=== PATIENT | male | born 1965 | race Caucasian/White ===

== ENCOUNTER 2016-09-23 09:07 | Emergency (ER) | payer BC, OTHER ==
[2016-09-23] MEDS ORDERED: KETOROLAC 30 MG/ML VIAL (J1885) As Ordered ONE (09:59)
[2016-09-23 10:18] LABS: BASO # 0.1 K/mm3 (0.0-0.2); BASO % 0.8 % (0.0-1.0); EOS # 0.3 K/mm3 (0.0-0.50); EOS % 3.6 % (0.0-3.0); LARGE UNSTAINED CELL # 0.1 K/mm3 (0.0-0.4); LARGE UNSTAINED CELL % 1.6 % (0.0-4.0); LYMPH % 22.1 % (24.0-44.0); MEAN CORPUSCULAR HEMOGLOBIN 28.9 pg (27.0-33.0); MEAN CORPUSCULAR VOLUME 84.9 fl (80.0-96.0); MONO # 0.6 K/mm3 (0.0-0.8); MONO % 6.2 % (0.0-5.0); NEUTROPHILS # 5.9 K/mm3 (1.8-7.7); NEUTROPHILS % 65.7 % (36.0-66.0); PLATELET COUNT, AUTOMATED 180 k/mm3 (150-450); RED CELL DISTRIBUTION WIDTH 12.8 % (11.5-14.5); WHITE BLOOD COUNT 8.9 K/mm3 (4.0-10.0)
[2016-09-23 10:37] LABS: ANION GAP 5 MEQ/L (8-16); BLOOD UREA NITROGEN 17 MG/DL (7-18); CALCIUM LEVEL 8.5 MG/DL (8.5-10.1); CARBON DIOXIDE LEVEL 31 MEQ/L (21-32); CHLORIDE LEVEL 107 MEQ/L (98-107); CREATININE FOR GFR 0.88 MG/DL (0.70-1.30); GLOMERULAR FILTRATION RATE > 60.0 (>60); GLUCOSE, FASTING 90 MG/DL (70-105); POTASSIUM SERUM 4.2 MEQ/L (3.5-5.1); SODIUM LEVEL 143 MEQ/L (136-145)
--- NOTE | 2016-09-23 11:27 | REP ---
CT study of the abdomen and pelvis without IV or oral contrast: Renal stone protocol. History: Left renal colic. Comparison CT study is from September 02, 2014. 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 The lung bases are clear. The liver and the spleen are normal in size and homogeneous in texture. No adrenal lesion is seen on either side. The gallbladder and the pancreas show no abnormality. There is stranding and subtle increased density throughout the small bowel mesentery including the paraduodenal small bowel mesenteric fat. Scattered normal-sized lymph nodes are seen. These findings are unchanged when compared with the September 02, 2014 study and consistent with mesenteric panniculitis. There is scattered left colon diverticulosis, most pronounced in the sigmoid segment without CT evidence of diverticulitis. Seminal vesicles, prostate and urinary bladder are unremarkable. Normal appendix is seen. There is mild to moderate left-sided hydronephrosis and hydroureter due to a distal ureteral calculus in the left ureter several centimeters above the ureterovesical junction. This calculus measures 6 mm in greatest diameter. No other ureteral calculus is seen. There are multiple intrarenal calculi bilaterally. There are five or six intrarenal calculi in the left kidney and three on the right. The largest of these is a 7 mm calculus in the left kidney. No retroperitoneal mass or adenopathy is seen. Normal caliber aorta is noted. Urinary bladder is unremarkable. Impression: 1. Moderate left-sided hydronephrosis and hydroureter due to a 6 mm obstructing distal ureteral calculus on the left located several centimeters above the ureterovesical junction. 2. Bilateral intrarenal nephrolithiasis. 3. Left colonic diverticulosis. 4. Small bowel mesenteric panniculitis pattern persists. Signed by Adal Rivera MD 09/23/2016 02:33 P
--- NOTE | 2016-09-23 12:10 | EDDOCDS ---
Nurse's Notes [facility] Name: Ephraim Reyes Age: 50 yrs Sex: Male : 1965 Arrival Date: 09/23/2016 Time: 09:07 Bed I5 / M5 Private MD: Diagnosis: Hydronephrosis with renal and ureteral calculous obstruction-left distal ureter, 6mm stone Presentation: 09/23 09:26 Presenting complaint: Patient states: "I'm having a kidney stone." Pt reports hx of ead kidney stones. Pt reports onset of left flank pain yesterday morning. Acute neurological deficits are not present. Mechanism of Injury: No Mechanism of Injury. Adult Sepsis Screening: The patient does not have new or worsening altered mentation. Patient's respiratory rate is less than 22. Systolic blood pressure is greater than 100. Patient has a qSOFA score of 0- Negative Sepsis Screen. Suicide/Homicide risk assessment- the patient denies having any suicidal and/or homicidal ideations and does not present with any other emotional, behavioral or mental health complaints. 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 Transition of care: patient was not received from another setting of care. 09:26 Acuity: JAMMIE Level 3 ead 09:26 Method Of Arrival: Walkin/Carried/Asstd ead Triage Assessment: 09:28 General: Appears in no apparent distress, uncomfortable, Behavior is appropriate for ead age, cooperative. Pain: Location: anterior aspect of left lateral abdomen and posterior aspect of left lateral abdomen Pain currently is 7 out of 10 on a pain scale. At worst was 10 out of 10 on a pain scale. HIV screening NA for this visit Offered previously. Neurological: No deficits noted. Respiratory: Airway is patent Respiratory effort is even, unlabored. Derm: Skin is pink, warm & dry. Musculoskeletal: Reports pain in anterior aspect of left lateral abdomen and posterior aspect of left lateral abdomen. 09:28 GI: Reports lower abdominal pain, upper abdominal pain, nausea. ead Historical: - Allergies: PENICILLINS (Rash); - Home Meds: 1. none - PMHx: Renal Calculi; - PSHx: kidney stone removal; - Social history: Smoking status: Patient states was never smoker of tobacco. No barriers to communication noted, The patient speaks fluent Armenian, Speaks appropriately for age. - : The pt / caregiver states he / she is not on anticoagulants. Home medication list is obtained from the patient. - Exposure Risk Screening:: None identified. Screenin:07 Screening information is obtained from the patient. Fall risk: No risks identified. jjr Assistance ADL's: requires no assistance with activities of daily living. Abuse/DV Screen: The patient / caregiver reports he/she is: not in a situation that causes fear, pain or injury. Nutritional screening: No deficits noted. Advance Directives: There is no active DNR order. home support is adequate. Assessment: 10:05 General: Appears uncomfortable, well nourished, well groomed, Behavior is appropriate jjr for age. Pain: Location: left low back Pain radiates to left lower quadrant and groin Pain began 1 day ago Is continuous Also complains of nausea. Neurological: No deficits noted. Respiratory: No deficits noted. Derm: No deficits noted. 11:08 General: Appears in no apparent distress, reports pain decreased from arrival, denies jjr needs at this time. Vital Signs: 09:25 BP 144 / 101; Pulse 74; Resp 18; Temp 96.8(O); Pulse Ox 97% on R/A; Weight 90.72 kg ead (R); Height 5 ft. 8 in. (172.72 cm) (R); 10:24 Pain 5/10; jjr 12:03 BP 136 / 99; Pulse 65; Resp 18; Temp 98.9; Pulse Ox 98% ; jlf 12:09 Pain 4/10; jjr 09:25 Body Mass Index 30.41 (90.72 kg, 172.72 cm) [facility] Vitals: 09:25 Log In Time: September 23, 2016 at 09:07. [facility] ED Course: 09:09 Patient visited by Arielle Sevilla. az 09:09 Patient moved to Waiting az 09:23 Patient moved to Pre RCE ead 09:27 Triage Initiated ead 09:48 Romel Rodriguez PA-C is PHCP. ar2 09:48 Barbra Shaw MD is Attending Physician. ar2 09:48 Patient visited by Romel Rodriguez PA-C. ar2 09:48 Patient moved to Triage 3 ead 09:57 Kiya Valenzuela RN is Primary Nurse. jjr 09:57 Patient moved to I5 / M5 jjr 10:06 The patient / caregiver is instructed regarding the plan of care and ED course. jjr 10:06 Inserted saline lock: 20 gauge in right antecubital area and blood collected. Labs jjr drawn. (by ED staff). Sent per order to lab. 10:07 Patient visited by Kiya Valenzuela RN. jjr 10:08 Urine Culture Sent. jjr 10:08 UA Sent. jjr 10:08 MED Profile Sent. jjr 10:08 CBC with Diff Sent. jjr 10:29 Patient name changed from Ephraim\\S\\Raphael\\S\\Eric\\S\\ to Ephraim\\S\\Johnopher\\S\\Eric. EDMS 10:37 Patient visited by Anita Francis PCA. jlf 10:58 [facility] Payment Agreement was scanned into [employer] and attached to record. az 11:08 Patient visited by Kiya Valenzuela RN. jjr 11:59 Jhon Moulton is Referral Physician. ar2 12:00 CT ABD & PELVIS: No Contrast Returned. EDMS 12:03 Patient visited by Anita Francis PCA. jlf 12:03 Patient visited by Anita Francis PCA. jlf 12:09 Discontinued lock intact, bleeding controlled, pressure dressing applied, No jjr redness/swelling at site. No procedures done that require assistance. Administered Medications: 10:07 Drug: ketorolac 30 mg [ketorolac 30 mg/mL (1 mL) injection solution (1 mL)] Route: IVP; jjr Site: right antecubital; 10:24 Follow up: Pain 5/10 Adult; Response: Pain is decreased jjr 10:10 Drug: NS 0.9% 1000 ml Route: IV; Rate: bolus; Site: right antecubital; [facility] 11:07 Follow up: IV Status: Completed infusion; IV Intake: 1000ml jjr Intake: 11:07 IV: 1000.00ml; Total: 1000.00ml. jjr Order Results: Lab Order: CBC with Diff; SPEC'M 09/23/16 10:03 Test: WHITE BLOOD COUNT; Value: 8.9; Range: 4.0-10.0; Units: K/mm3; Status: F Test: RED BLOOD COUNT; Value: 5.26; Range: 4.30-6.10; Units: M/mm3; Status: F Test: HEMOGLOBIN; Value: 15.2; Range: 14.0-18.0; Units: g/dl; Status: F Test: HEMATOCRIT; Value: 44.7; Range: 42.0-52.0; Units: %; Status: F Test: MEAN CORPUSCULAR VOLUME; Value: 84.9; Range: 80.0-96.0; Units: fl; Status: F Test: MEAN CORPUSCULAR HEMOGLOBIN; Value: 28.9; Range: 27.0-33.0; Units: pg; Status: F Test: MEAN CORPUSCULAR HGB CONC; Value: 34.0; Range: 32.0-36.5; Units: g/dl; Status: F Test: RED CELL DISTRIBUTION WIDTH; Value: 12.8; Range: 11.5-14.5; Units: %; Status: F Test: PLATELET COUNT, AUTOMATED; Value: 180; Range: 150-450; Units: k/mm3; Status: F Test: NEUTROPHILS %; Value: 65.7; Range: 36.0-66.0; Units: %; Status: F Test: LYMPH %; Value: 22.1; Range: 24.0-44.0; Abnormal: Below low normal; Units: %; Status: F Test: MONO %; Value: 6.2; Range: 0.0-5.0; Abnormal: Above high normal; Units: %; Status: F Test: EOS %; Value: 3.6; Range: 0.0-3.0; Abnormal: Above high normal; Units: %; Status: F Test: BASO %; Value: 0.8; Range: 0.0-1.0; Units: %; Status: F Test: LARGE UNSTAINED CELL %; Value: 1.6; Range: 0.0-4.0; Units: %; Status: F Test: NEUTROPHILS #; Value: 5.9; Range: 1.8-7.7; Units: K/mm3; Status: F Test: LYMPH #; Value: 2.0; Range: 1.5-4.5; Units: K/mm3; Status: F Test: MONO #; Value: 0.6; Range: 0.0-0.8; Units: K/mm3; Status: F Test: EOS #; Value: 0.3; Range: 0.0-0.50; Units: K/mm3; Status: F Test: BASO #; Value: 0.1; Range: 0.0-0.2; Units: K/mm3; Status: F Test: LARGE UNSTAINED CELL #; Value: 0.1; Range: 0.0-0.4; Units: K/mm3; Status: F Lab Order: MED Profile; SPEC'M 09/23/16 10:03 Test: GLUCOSE, FASTING; Value: 90; Range: 70-105; Units: MG/DL; Status: F Test: BLOOD UREA NITROGEN; Value: 17; Range: 7-18; Units: MG/DL; Status: F Test: CREATININE FOR GFR; Value: 0.88; Range: 0.70-1.30; Units: MG/DL; Status: F Test: GLOMERULAR FILTRATION RATE; Value: > 60.0; Range: >60; Status: F Test: SODIUM LEVEL; Value: 143; Range: 136-145; Units: MEQ/L; Status: F Test: POTASSIUM SERUM; Value: 4.2; Range: 3.5-5.1; Units: MEQ/L; Status: F Test: CHLORIDE LEVEL; Value: 107; Range: 98-107; Units: MEQ/L; Status: F Test: CARBON DIOXIDE LEVEL; Value: 31; Range: 21-32; Units: MEQ/L; Status: F Test: ANION GAP; Value: 5; Range: 8-16; Abnormal: Below low normal; Units: MEQ/L; Status: F Test: CALCIUM LEVEL; Value: 8.5; Range: 8.5-10.1; Units: MG/DL; Status: F Test Note: ; Units are mL/min/1.73 m2 Chronic Kidney Disease Staging per NKF: Stage I & II GFR >=60 Normal to Mildly Decreased Stage III GFR 30-59 Moderately Decreased Stage IV GFR 15-29 Severely Decreased Stage V GFR <15 Very Little GFR Left ESRD GFR <15 on STEEL RU[employer]IE [employer]ER Lab Order: UA; SPEC'09/23/16 09:56 Test: APPEARANCE, URINE; Value: HAZY; Range: CLEAR; Status: F Test: COLOR, URINE; Value: YELLOW; Range: YELLOW; Status: F Test: PH,URINE; Value: 5.0; Range: 5.0-9.0; Units: UNITS; Status: F Test: SPECIFIC GRAVITY URINE AUTO; Value: 1.015; Range: 1.002-1.035; Status: F Test: PROTEIN, URINE AUTO; Value: NEGATIVE; Range: NEGATIVE; Units: mg/dL; Status: F Test: GLUCOSE, URINE (UA) AUTO; Value: NEGATIVE; Range: NEGATIVE; Units: mg/dL; Status: F Test: KETONE, URINE AUTO; Value: NEGATIVE; Range: NEGATIVE; Units: mg/dL; Status: F Test: UROBILINOGEN, URINE AUTO; Value: 0.2; Range: 0.0-2.0; Units: mg/dL; Status: F Test: BILIRUBIN, URINE AUTO; Value: NEGATIVE; Range: NEGATIVE; Status: F Test: NITRITE, URINE AUTO; Value: NEGATIVE; Range: NEGATIVE; Status: F Test: LEUKOCYTE ESTERASE, URINE AUTO; Value: NEGATIVE; Range: NEGATIVE; Status: F Test: BLOOD, URINE BLOOD; Value: 3+; Range: NEGATIVE; Abnormal: Above high normal; Status: F Test: WBC, URINE AUTO; Value: 3; Range: 0-3; Units: /HPF; Status: F Test: RBC, URINE AUTO; Value: TNTC; Range: 0-3; Abnormal: Above high normal; Units: /HPF; Status: F Test: BACTERIA, URINE AUTO; Value: 1+; Range: NEGATIVE; Abnormal: Above high normal; Status: F Test: SQUAMOUS EPITHELIAL CELL UR AU; Value: 0; Range: 0-6; Units: /HPF; Status: F Test: MUCUS, URINE; Value: SMALL; Range: NEGATIVE; Status: F Test: SPERM, URINE AUTO; Value: SMALL; Range: NONE; Abnormal: Above high normal; Status: F Test: HYALINE CAST, URINE AUTO; Value: 0; Range: 0-1; Units: /LPF; Status: F Radiology Order: CT ABD & PELVIS: No Contrast Test: CT ABD & PELVIS: No Contrast REASON FOR EXAMINATION: left renal colic; CT study of the abdomen and pelvis without IV or oral contrast: Renal stone; protocol.; ; History: Left renal colic. 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 The lung bases are clear. The liver and the spleen are normal in size; and homogeneous in texture. No adrenal lesion is seen on either side. The; gallbladder and the pancreas show no abnormality. There is stranding and subtle; increased density throughout the small bowel mesentery including the paraduodenal; small bowel mesenteric fat. Scattered normal-sized lymph nodes are seen. These; findings are unchanged when compared with the September 02, 2014 study and; consistent with mesenteric panniculitis. There is scattered left colon; diverticulosis, most pronounced in the sigmoid segment without CT evidence of; diverticulitis. Seminal vesicles, prostate and urinary bladder are unremarkable.; Normal appendix is seen.; ; There is mild to moderate left-sided hydronephrosis and hydroureter due to a; distal ureteral calculus in the left ureter several centimeters above the; ureterovesical junction. This calculus measures 6 mm in greatest diameter. No; other ureteral calculus is seen. There are multiple intrarenal calculi; bilaterally. There are five or six intrarenal calculi in the left kidney and; three on the right. The largest of these is a 7 mm calculus in the left kidney.; No retroperitoneal mass or adenopathy is seen. Normal caliber aorta is noted.; Urinary bladder is unremarkable.; ; Impression:; 1. Moderate left-sided hydronephrosis and hydroureter due to a 6 mm obstructing; distal ureteral calculus on the left located several centimeters above the; ureterovesical junction.; 2. Bilateral intrarenal nephrolithiasis.; 3. Left colonic diverticulosis.; 4. Small bowel mesenteric panniculitis pattern persists.; ; ; ; ; Unreviewed; Outcome: 12:01 Discharge ordered by Provider. ar2 12:09 Discharge Assessment: patient administered narcotics - no. The following High Risk jjr Discharge criteria are identified: None. Discharged to home ambulatory, with significant other. Condition: stable. Discharge instructions given to patient, Instructed on discharge instructions, follow up and referral plans. medication usage, Demonstrated understanding of instructions, medications, Prescriptions given X 4. CT Study completed. Property sent home with patient. 12:10 Patient left the ED. jjr Signatures: Dispatcher [employer] Pérez Michaud,RN RN Kiya Galindo, RN RN Romel Hebert, PA-[place] PA-C Anita Godwin, Heidy Lcuas,RN RN donnie Sevilla, Arielle berrios EWELINAD
--- NOTE | 2016-09-23 12:10 | EDDOCDS ---
Physician Documentation [facility] Name: Ephraim Reyes Age: 50 yrs Sex: Male : 1965 Arrival Date: 09/23/2016 Time: 09:07 Bed I5 / M5 Private MD: Disposition: 09/23/16 12:01 Discharged to Home/Self Care. Impression: Hydronephrosis with renal and ureteral calculous obstruction - left distal ureter, 6mm stone. - Condition is Stable. - Discharge Instructions: Kidney Stones. - Prescriptions for Ibuprofen 800 mg Oral Tablet - take 1 tablet by ORAL route every 8 hours As needed take with food; 30 tablet. Percocet 5- 325 mg Oral Tablet - take 1 tablet by ORAL route every 6 hours As needed MDD: 4 tabs; 16 tablet. Flomax 0.4 mg Oral Capsule, Sust. Release 24 hr - take 1 capsule by ORAL route once daily 1/2 hour following the same meal each day; 30 capsule. ZOFRAN ODT 4 mg - dissolve 1 tablet by ORAL route 4 times per day As needed do not chew, do not swallow whole; 10 tablet. - Medication Reconciliation, Local Pharmacy Hours form. - Follow up: Jhon Moulton; When: Call to arrange an appointment; Reason: Recheck today's complaints. Follow up: Emergency Department; When: As needed; Reason: Worsening of conditions. - Problem is new. - Symptoms have improved. Historical: - Allergies: PENICILLINS (Rash); - Home Meds: 1. none - PMHx: Renal Calculi; - PSHx: kidney stone removal; - Social history: Smoking status: Patient states was never smoker of tobacco. No barriers to communication noted, The patient speaks fluent Swiss, Speaks appropriately for age. - : The pt / caregiver states he / she is not on anticoagulants. Home medication list is obtained from the patient. - Exposure Risk Screening:: None identified. Vital Signs: 09/23 09:25 BP 144 / 101; Pulse 74; Resp 18; Temp 96.8(O); Pulse Ox 97% on R/A; Weight 90.72 kg / ead 200 lbs (R); Height 5 ft. 8 in. (172.72 cm) (R); 10:24 Pain 5/10; jjr 12:03 BP 136 / 99; Pulse 65; Resp 18; Temp 98.9; Pulse Ox 98% ; jlf 12:09 Pain 4/10; jjr 09:25 Body Mass Index 30.41 (90.72 kg, 172.72 cm) ead MDM: 09:52 IV Saline Lock ordered. ar2 09:52 NS 0.9% 1000 ml IV at bolus once ordered. ar2 09:52 ketorolac 30 mg IVP once ordered. ar2 09:52 Undress patient appropriately for examination ordered. ar2 09:53 CT ABD & PELVIS: No Contrast Ordered. EDMS 09:53 NOTHING BY MOUTH+DIET ordered. EDMS 09:54 CBC with Diff Ordered. EDMS 09:54 MED Profile Ordered. EDMS 09:54 UA Ordered. EDMS 09:54 Urine Culture Ordered. EDMS 10:19 Financial registration complete. az 10:47 CBC with Diff Reviewed. ar2 10:47 MED Profile Reviewed. ar2 10:47 UA Reviewed. ar2 10:58 [facility] Payment Agreement was scanned into [facility] and attached to record. az 11:58 Dispense Urine Strainer ordered. ar2 Administered Medications: 10:07 Drug: ketorolac 30 mg [ketorolac 30 mg/mL (1 mL) injection solution (1 mL)] Route: IVP; jjr Site: right antecubital; 10:24 Follow up: Pain 5/10 Adult; Response: Pain is decreased jjr 10:10 Drug: NS 0.9% 1000 ml Route: IV; Rate: bolus; Site: right antecubital; jmk 11:07 Follow up: IV Status: Completed infusion; IV Intake: 1000ml jjr Signatures: Dispatcher [employer] Kiya Barrios, RN RN jjRomel Alaniz, SHARRI HARRELL ar2 Heidy Loja RN RN ead Zeigler, Abigail az Knapp, Jean RN jmk The chart was reviewed and I authenticate all verbal orders and agree with the evaluation and treatment provided.Attachments: 10:58 [facility] Payment Agreement az MTDD
--- NOTE | 2016-09-25 13:10 | EDDOCDS ---
Physician Documentation [facility] Name: Ephraim Reyes Age: 50 yrs Sex: Male : 1965 Arrival Date: 09/23/2016 Time: 09:07 Bed I5 / M5 Private MD: Disposition: 09/23/16 12:01 Discharged to Home/Self Care. Impression: Hydronephrosis with renal and ureteral calculous obstruction - left distal ureter, 6mm stone. - Condition is Stable. - Discharge Instructions: Kidney Stones. - Prescriptions for Ibuprofen 800 mg Oral Tablet - take 1 tablet by ORAL route every 8 hours As needed take with food; 30 tablet. Percocet 5- 325 mg Oral Tablet - take 1 tablet by ORAL route every 6 hours As needed MDD: 4 tabs; 16 tablet. Flomax 0.4 mg Oral Capsule, Sust. Release 24 hr - take 1 capsule by ORAL route once daily 1/2 hour following the same meal each day; 30 capsule. ZOFRAN ODT 4 mg - dissolve 1 tablet by ORAL route 4 times per day As needed do not chew, do not swallow whole; 10 tablet. - Medication Reconciliation, Local Pharmacy Hours form. - Follow up: Jhon Moulton; When: Call to arrange an appointment; Reason: Recheck today's complaints. Follow up: Emergency Department; When: As needed; Reason: Worsening of conditions. - Problem is new. - Symptoms have improved. Historical: - Allergies: PENICILLINS (Rash); - Home Meds: 1. none - PMHx: Renal Calculi; - PSHx: kidney stone removal; - Social history: Smoking status: Patient states was never smoker of tobacco. No barriers to communication noted, The patient speaks fluent Marshallese, Speaks appropriately for age. - : The pt / caregiver states he / she is not on anticoagulants. Home medication list is obtained from the patient. - Exposure Risk Screening:: None identified. Vital Signs: 09/23 09:25 BP 144 / 101; Pulse 74; Resp 18; Temp 96.8(O); Pulse Ox 97% on R/A; Weight 90.72 kg / ead 200 lbs (R); Height 5 ft. 8 in. (172.72 cm) (R); 10:24 Pain 5/10; jjr 12:03 BP 136 / 99; Pulse 65; Resp 18; Temp 98.9; Pulse Ox 98% ; jlf 12:09 Pain 4/10; jjr 09:25 Body Mass Index 30.41 (90.72 kg, 172.72 cm) ead MDM: 09:52 IV Saline Lock ordered. ar2 09:52 NS 0.9% 1000 ml IV at bolus once ordered. ar2 09:52 ketorolac 30 mg IVP once ordered. ar2 09:52 Undress patient appropriately for examination ordered. ar2 09:53 CT ABD & PELVIS: No Contrast Ordered. EDMS 09:53 NOTHING BY MOUTH+DIET ordered. EDMS 09:54 CBC with Diff Ordered. EDMS 09:54 MED Profile Ordered. EDMS 09:54 UA Ordered. EDMS 09:54 Urine Culture Ordered. EDMS 10:19 Financial registration complete. az 10:47 CBC with Diff Reviewed. ar2 10:47 MED Profile Reviewed. ar2 10:47 UA Reviewed. ar2 10:58 [facility] Payment Agreement was scanned into [employer] and attached to record. az 11:58 Dispense Urine Strainer ordered. ar2 13:52 T-Sheet-- Draft Copy was scanned into [employer] and attached to record. klr 14:35 Radiology Report was scanned into [employer] and attached to record. gb Administered Medications: 10:07 Drug: ketorolac 30 mg [ketorolac 30 mg/mL (1 mL) injection solution (1 mL)] Route: IVP; jjr Site: right antecubital; 10:24 Follow up: Pain 5/10 Adult; Response: Pain is decreased jjr 10:10 Drug: NS 0.9% 1000 ml Route: IV; Rate: bolus; Site: right antecubital; jmk 11:07 Follow up: IV Status: Completed infusion; IV Intake: 1000ml jjr Signatures: Dispatcher [employer] EDMS Marilou Jensen, Reg Reg gb Kiya Valenzuela RN RN edwardr Romel Rodriguez PA-C PA-C ar2 Heidy Loja RN RN Arielle Del Rosario Kathie klr Knapp, Jean RN jmk The chart was reviewed and I authenticate all verbal orders and agree with the evaluation and treatment provided.Attachments: 10:58 [facility] Payment Agreement az 13:52 T-Sheet-- Draft Copy klr Chart Complete MTDD
--- NOTE | 2016-09-25 13:10 | EDDOCDS ---
Physician Documentation [facility] Name: Ephraim Reyes Age: 50 yrs Sex: Male : 1965 Arrival Date: 09/23/2016 Time: 09:07 Bed I5 / M5 Private MD: Disposition: 09/23/16 12:01 Discharged to Home/Self Care. Impression: Hydronephrosis with renal and ureteral calculous obstruction - left distal ureter, 6mm stone. - Condition is Stable. - Discharge Instructions: Kidney Stones. - Prescriptions for Ibuprofen 800 mg Oral Tablet - take 1 tablet by ORAL route every 8 hours As needed take with food; 30 tablet. Percocet 5- 325 mg Oral Tablet - take 1 tablet by ORAL route every 6 hours As needed MDD: 4 tabs; 16 tablet. Flomax 0.4 mg Oral Capsule, Sust. Release 24 hr - take 1 capsule by ORAL route once daily 1/2 hour following the same meal each day; 30 capsule. ZOFRAN ODT 4 mg - dissolve 1 tablet by ORAL route 4 times per day As needed do not chew, do not swallow whole; 10 tablet. - Medication Reconciliation, Local Pharmacy Hours form. - Follow up: Jhon Moul[facility]; When: Call to arrange an appointment; Reason: Recheck today's complaints. Follow up: Emergency Department; When: As needed; Reason: Worsening of conditions. - Problem is new. - Symptoms have improved. Historical: - Allergies: PENICILLINS (Rash); - Home Meds: 1. none - PMHx: Renal Calculi; - PSHx: kidney stone removal; - Social history: Smoking status: Patient states was never smoker of tobacco. No barriers to communication noted, The patient speaks fluent Brazilian, Speaks appropriately for age. - : The pt / caregiver states he / she is not on anticoagulants. Home medication list is obtained from the patient. - Exposure Risk Screening:: None identified. Vital Signs: 09/23 09:25 BP 144 / 101; Pulse 74; Resp 18; Temp 96.8(O); Pulse Ox 97% on R/A; Weight 90.72 kg / ead 200 lbs (R); Height 5 ft. 8 in. (172.72 cm) (R); 10:24 Pain 5/10; jjr 12:03 BP 136 / 99; Pulse 65; Resp 18; Temp 98.9; Pulse Ox 98% ; jlf 12:09 Pain 4/10; jjr 09:25 Body Mass Index 30.41 (90.72 kg, 172.72 cm) ead MDM: 09:52 IV Saline Lock ordered. ar2 09:52 NS 0.9% 1000 ml IV at bolus once ordered. ar2 09:52 ketorolac 30 mg IVP once ordered. ar2 09:52 Undress patient appropriately for examination ordered. ar2 09:53 CT ABD & PELVIS: No Contrast Ordered. EDMS 09:53 NOTHING BY MOUTH+DIET ordered. EDMS 09:54 CBC with Diff Ordered. EDMS 09:54 MED Profile Ordered. EDMS 09:54 UA Ordered. EDMS 09:54 Urine Culture Ordered. EDMS 10:19 Financial registration complete. az 10:47 CBC with Diff Reviewed. ar2 10:47 MED Profile Reviewed. ar2 10:47 UA Reviewed. ar2 10:58 [facility] Payment Agreement was scanned into [employer] and attached to record. az 11:58 Dispense Urine Strainer ordered. ar2 13:52 T-Sheet-- Draft Copy was scanned into [employer] and attached to record. klr 14:35 Radiology Report was scanned into [employer] and attached to record. gb Administered Medications: 10:07 Drug: ketorolac 30 mg [ketorolac 30 mg/mL (1 mL) injection solution (1 mL)] Route: IVP; jjr Site: right antecubital; 10:24 Follow up: Pain 5/10 Adult; Response: Pain is decreased jjr 10:10 Drug: NS 0.9% 1000 ml Route: IV; Rate: bolus; Site: right antecubital; jmk 11:07 Follow up: IV Status: Completed infusion; IV Intake: 1000ml jjr Signatures: Dispatcher Med[employer] EDMS Marilou Jensen, Reg Reg gb Kiya Valenzuela RN RN edwardr Romel Rodriguez PA-C PA-C ar2 Heidy Loja RN RN Arielle Del Rosario Kathie klr Knapp, Jean RN jmk The chart was reviewed and I authenticate all verbal orders and agree with the evaluation and treatment provided.Attachments: 10:58 [facility] Payment Agreement az 13:52 T-Sheet-- Draft Copy klr Chart Complete MTDD
--- NOTE | 2016-09-25 13:10 | EDDOCDS ---
Nurse's Notes [facility] Name: Ephraim Reyes Age: 50 yrs Sex: Male : 1965 Arrival Date: 09/23/2016 Time: 09:07 Bed I5 / M5 Private MD: Diagnosis: Hydronephrosis with renal and ureteral calculous obstruction-left distal ureter, 6mm stone Presentation: 09/23 09:26 Presenting complaint: Patient states: "I'm having a kidney stone." Pt reports hx of ead kidney stones. Pt reports onset of left flank pain yesterday morning. Acute neurological deficits are not present. Mechanism of Injury: No Mechanism of Injury. Adult Sepsis Screening: The patient does not have new or worsening altered mentation. Patient's respiratory rate is less than 22. Systolic blood pressure is greater than 100. Patient has a qSOFA score of 0- Negative Sepsis Screen. Suicide/Homicide risk assessment- the patient denies having any suicidal and/or homicidal ideations and does not present with any other emotional, behavioral or mental health complaints. 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 Transition of care: patient was not received from another setting of care. 09:26 Acuity: JAMMIE Level 3 ead 09:26 Method Of Arrival: Walkin/Carried/Asstd ead Triage Assessment: 09:28 General: Appears in no apparent distress, uncomfortable, Behavior is appropriate for ead age, cooperative. Pain: Location: anterior aspect of left lateral abdomen and posterior aspect of left lateral abdomen Pain currently is 7 out of 10 on a pain scale. At worst was 10 out of 10 on a pain scale. HIV screening NA for this visit Offered previously. Neurological: No deficits noted. Respiratory: Airway is patent Respiratory effort is even, unlabored. Derm: Skin is pink, warm & dry. Musculoskeletal: Reports pain in anterior aspect of left lateral abdomen and posterior aspect of left lateral abdomen. 09:28 GI: Reports lower abdominal pain, upper abdominal pain, nausea. ead Historical: - Allergies: PENICILLINS (Rash); - Home Meds: 1. none - PMHx: Renal Calculi; - PSHx: kidney stone removal; - Social history: Smoking status: Patient states was never smoker of tobacco. No barriers to communication noted, The patient speaks fluent Mongolian, Speaks appropriately for age. - : The pt / caregiver states he / she is not on anticoagulants. Home medication list is obtained from the patient. - Exposure Risk Screening:: None identified. Screenin:07 Screening information is obtained from the patient. Fall risk: No risks identified. jjr Assistance ADL's: requires no assistance with activities of daily living. Abuse/DV Screen: The patient / caregiver reports he/she is: not in a situation that causes fear, pain or injury. Nutritional screening: No deficits noted. Advance Directives: There is no active DNR order. home support is adequate. Assessment: 10:05 General: Appears uncomfortable, well nourished, well groomed, Behavior is appropriate jjr for age. Pain: Location: left low back Pain radiates to left lower quadrant and groin Pain began 1 day ago Is continuous Also complains of nausea. Neurological: No deficits noted. Respiratory: No deficits noted. Derm: No deficits noted. 11:08 General: Appears in no apparent distress, reports pain decreased from arrival, denies jjr needs at this time. Vital Signs: 09:25 BP 144 / 101; Pulse 74; Resp 18; Temp 96.8(O); Pulse Ox 97% on R/A; Weight 90.72 kg ead (R); Height 5 ft. 8 in. (172.72 cm) (R); 10:24 Pain 5/10; jjr 12:03 BP 136 / 99; Pulse 65; Resp 18; Temp 98.9; Pulse Ox 98% ; jlf 12:09 Pain 4/10; jjr 09:25 Body Mass Index 30.41 (90.72 kg, 172.72 cm) [facility] Vitals: 09:25 Log In Time: September 23, 2016 at 09:07. [facility] ED Course: 09:09 Patient visited by Arielle Sevilla. az 09:09 Patient moved to Waiting az 09:23 Patient moved to Pre RCE ead 09:27 Triage Initiated ead 09:48 Romel Rodriguez PA-C is PHCP. ar2 09:48 Barbra Shaw MD is Attending Physician. ar2 09:48 Patient visited by Romel Rodriguez PA-C. ar2 09:48 Patient moved to Triage 3 ead 09:57 Kiya Valenzuela RN is Primary Nurse. jjr 09:57 Patient moved to I5 / M5 jjr 10:06 The patient / caregiver is instructed regarding the plan of care and ED course. jjr 10:06 Inserted saline lock: 20 gauge in right antecubital area and blood collected. Labs jjr drawn. (by ED staff). Sent per order to lab. 10:07 Patient visited by Kiya Valenzuela RN. jjr 10:08 Urine Culture Sent. jjr 10:08 UA Sent. jjr 10:08 MED Profile Sent. jjr 10:08 CBC with Diff Sent. jjr 10:29 Patient name changed from Ephraim\\S\\Raphael\\S\\Eric\\S\\ to Ephraim\\S\\Johnopher\\S\\Eric. EDMS 10:37 Patient visited by Anita Francis PCA. jlf 10:58 [facility] Payment Agreement was scanned into [email or web address] and attached to record. az 11:08 Patient visited by Kiya Valenzuela RN. jjr 11:59 Jhon Moulton is Referral Physician. ar2 12:00 CT ABD & PELVIS: No Contrast Returned. EDMS 12:03 Patient visited by Anita Francis PCA. jlf 12:03 Patient visited by Anita Francis PCA. jlf 12:09 Discontinued lock intact, bleeding controlled, pressure dressing applied, No jjr redness/swelling at site. No procedures done that require assistance. 13:52 T-Sheet-- Draft Copy was scanned into [email or web address] and attached to record. klr 14:35 Radiology Report was scanned into [email or web address] and attached to record. gb Administered Medications: 10:07 Drug: ketorolac 30 mg [ketorolac 30 mg/mL (1 mL) injection solution (1 mL)] Route: IVP; jjr Site: right antecubital; 10:24 Follow up: Pain 5/10 Adult; Response: Pain is decreased jjr 10:10 Drug: NS 0.9% 1000 ml Route: IV; Rate: bolus; Site: right antecubital; k 11:07 Follow up: IV Status: Completed infusion; IV Intake: 1000ml jjr Intake: 11:07 IV: 1000.00ml; Total: 1000.00ml. jjr Order Results: Lab Order: CBC with Diff; SPEC'M 09/23/16 10:03 Test: WHITE BLOOD COUNT; Value: 8.9; Range: 4.0-10.0; Units: K/mm3; Status: F Test: RED BLOOD COUNT; Value: 5.26; Range: 4.30-6.10; Units: M/mm3; Status: F Test: HEMOGLOBIN; Value: 15.2; Range: 14.0-18.0; Units: g/dl; Status: F Test: HEMATOCRIT; Value: 44.7; Range: 42.0-52.0; Units: %; Status: F Test: MEAN CORPUSCULAR VOLUME; Value: 84.9; Range: 80.0-96.0; Units: fl; Status: F Test: MEAN CORPUSCULAR HEMOGLOBIN; Value: 28.9; Range: 27.0-33.0; Units: pg; Status: F Test: MEAN CORPUSCULAR HGB CONC; Value: 34.0; Range: 32.0-36.5; Units: g/dl; Status: F Test: RED CELL DISTRIBUTION WIDTH; Value: 12.8; Range: 11.5-14.5; Units: %; Status: F Test: PLATELET COUNT, AUTOMATED; Value: 180; Range: 150-450; Units: k/mm3; Status: F Test: NEUTROPHILS %; Value: 65.7; Range: 36.0-66.0; Units: %; Status: F Test: LYMPH %; Value: 22.1; Range: 24.0-44.0; Abnormal: Below low normal; Units: %; Status: F Test: MONO %; Value: 6.2; Range: 0.0-5.0; Abnormal: Above high normal; Units: %; Status: F Test: EOS %; Value: 3.6; Range: 0.0-3.0; Abnormal: Above high normal; Units: %; Status: F Test: BASO %; Value: 0.8; Range: 0.0-1.0; Units: %; Status: F Test: LARGE UNSTAINED CELL %; Value: 1.6; Range: 0.0-4.0; Units: %; Status: F Test: NEUTROPHILS #; Value: 5.9; Range: 1.8-7.7; Units: K/mm3; Status: F Test: LYMPH #; Value: 2.0; Range: 1.5-4.5; Units: K/mm3; Status: F Test: MONO #; Value: 0.6; Range: 0.0-0.8; Units: K/mm3; Status: F Test: EOS #; Value: 0.3; Range: 0.0-0.50; Units: K/mm3; Status: F Test: BASO #; Value: 0.1; Range: 0.0-0.2; Units: K/mm3; Status: F Test: LARGE UNSTAINED CELL #; Value: 0.1; Range: 0.0-0.4; Units: K/mm3; Status: F Lab Order: MED Profile; SPEC09/23/16 10:03 Test: GLUCOSE, FASTING; Value: 90; Range: 70-105; Units: MG/DL; Status: F Test: BLOOD UREA NITROGEN; Value: 17; Range: 7-18; Units: MG/DL; Status: F Test: CREATININE FOR GFR; Value: 0.88; Range: 0.70-1.30; Units: MG/DL; Status: F Test: GLOMERULAR FILTRATION RATE; Value: > 60.0; Range: >60; Status: F Test: SODIUM LEVEL; Value: 143; Range: 136-145; Units: MEQ/L; Status: F Test: POTASSIUM SERUM; Value: 4.2; Range: 3.5-5.1; Units: MEQ/L; Status: F Test: CHLORIDE LEVEL; Value: 107; Range: 98-107; Units: MEQ/L; Status: F Test: CARBON DIOXIDE LEVEL; Value: 31; Range: 21-32; Units: MEQ/L; Status: F Test: ANION GAP; Value: 5; Range: 8-16; Abnormal: Below low normal; Units: MEQ/L; Status: F Test: CALCIUM LEVEL; Value: 8.5; Range: 8.5-10.1; Units: MG/DL; Status: F Test Note: ; Units are mL/min/1.73 m2 Chronic Kidney Disease Staging per NKF: Stage I & II GFR >=60 Normal to Mildly Decreased Stage III GFR 30-59 Moderately Decreased Stage IV GFR 15-29 Severely Decreased Stage V GFR <15 Very Little GFR Left ESRD GFR <15 on CHARGER TESTER Lab Order: UA; SPEC'M 09/23/16 09:56 Test: APPEARANCE, URINE; Value: HAZY; Range: CLEAR; Status: F Test: COLOR, URINE; Value: YELLOW; Range: YELLOW; Status: F Test: PH,URINE; Value: 5.0; Range: 5.0-9.0; Units: UNITS; Status: F Test: SPECIFIC GRAVITY URINE AUTO; Value: 1.015; Range: 1.002-1.035; Status: F Test: PROTEIN, URINE AUTO; Value: NEGATIVE; Range: NEGATIVE; Units: mg/dL; Status: F Test: GLUCOSE, URINE (UA) AUTO; Value: NEGATIVE; Range: NEGATIVE; Units: mg/dL; Status: F Test: KETONE, URINE AUTO; Value: NEGATIVE; Range: NEGATIVE; Units: mg/dL; Status: F Test: UROBILINOGEN, URINE AUTO; Value: 0.2; Range: 0.0-2.0; Units: mg/dL; Status: F Test: BILIRUBIN, URINE AUTO; Value: NEGATIVE; Range: NEGATIVE; Status: F Test: NITRITE, URINE AUTO; Value: NEGATIVE; Range: NEGATIVE; Status: F Test: LEUKOCYTE ESTERASE, URINE AUTO; Value: NEGATIVE; Range: NEGATIVE; Status: F Test: BLOOD, URINE BLOOD; Value: 3+; Range: NEGATIVE; Abnormal: Above high normal; Status: F Test: WBC, URINE AUTO; Value: 3; Range: 0-3; Units: /HPF; Status: F Test: RBC, URINE AUTO; Value: TNTC; Range: 0-3; Abnormal: Above high normal; Units: /HPF; Status: F Test: BACTERIA, URINE AUTO; Value: 1+; Range: NEGATIVE; Abnormal: Above high normal; Status: F Test: SQUAMOUS EPITHELIAL CELL UR AU; Value: 0; Range: 0-6; Units: /HPF; Status: F Test: MUCUS, URINE; Value: SMALL; Range: NEGATIVE; Status: F Test: SPERM, URINE AUTO; Value: SMALL; Range: NONE; Abnormal: Above high normal; Status: F Test: HYALINE CAST, URINE AUTO; Value: 0; Range: 0-1; Units: /LPF; Status: F Lab Order: Urine Culture; SPEC'M 09/23/16 09:56 Test: URINE CULTURE; Value: <EXTERNAL COMMENT eCWMed> FULL REPORT IN LAB NOTES (eCW and Medent).; Status: F Test: URINE CULTURE; Value: URINE CULTURE RESULT NO GROWTH; Status: F Radiology Order: CT ABD & PELVIS: No Contrast Test: CT ABD & PELVIS: No Contrast REASON FOR EXAMINATION: left renal colic; CT study of the abdomen and pelvis without IV or oral contrast: Renal stone; protocol.; ; History: Left renal colic. Comparison CT study is from September 02, 2014.; ; Findings: Preliminary rn neonatal radiograph demonstrates an unremarkable bowel gas; pattern. The lung bases are clear. The liver and the spleen are normal in size; and homogeneous in texture. No adrenal lesion is seen on either side. The; gallbladder and the pancreas show no abnormality. There is stranding and subtle; increased density throughout the small bowel mesentery including the paraduodenal; small bowel mesenteric fat. Scattered normal-sized lymph nodes are seen. These; findings are unchanged when compared with the September 02, 2014 study and; consistent with mesenteric panniculitis. There is scattered left colon; diverticulosis, most pronounced in the sigmoid segment without CT evidence of; diverticulitis. Seminal vesicles, prostate and urinary bladder are unremarkable.; Normal appendix is seen.; ; There is mild to moderate left-sided hydronephrosis and hydroureter due to a; distal ureteral calculus in the left ureter several centimeters above the; ureterovesical junction. This calculus measures 6 mm in greatest diameter. No; other ureteral calculus is seen. There are multiple intrarenal calculi; bilaterally. There are five or six intrarenal calculi in the left kidney and; three on the right. The largest of these is a 7 mm calculus in the left kidney.; No retroperitoneal mass or adenopathy is seen. Normal caliber aorta is noted.; Urinary bladder is unremarkable.; ; Impression:; ; 1. Moderate left-sided hydronephrosis and hydroureter due to a 6 mm obstructing; distal ureteral calculus on the left located several centimeters above the; ureterovesical junction.; ; 2. Bilateral intrarenal nephrolithiasis.; ; 3. Left colonic diverticulosis.; ; 4. Small bowel mesenteric panniculitis pattern persists.; ; ; Signed by; Adal Rivera MD 09/23/2016 02:33 P; Outcome: 12:01 Discharge ordered by Provider. ar2 12:09 Discharge Assessment: patient administered narcotics - no. The following High Risk jjr Discharge criteria are identified: None. Discharged to home ambulatory, with significant other. Condition: stable. Discharge instructions given to patient, Instructed on discharge instructions, follow up and referral plans. medication usage, Demonstrated understanding of instructions, medications, Prescriptions given X 4. CT Study completed. Property sent home with patient. 12:10 Patient left the ED. jjr Signatures: Dispatcher Med[employer] EDMS Pérez Sequeira,RN RN Marilou Becker, Reg Reg Kiya Pitt RN RN jjr Romel Rodriguez, PA-C PA-C ar2 Anita Francis, Heidy Lucas,RN RN donnie Sevilla, María Elena Peña Chart Complete THI
== END 2016-09-23 12:10 | disposition home or self-care (01) ==
LOC: M ED 09:07
DX: N20.1 Calculus of ureter (principal); Z87.442 Personal history of urinary calculi; Z88.0 Allergy status to penicillin
CPT/HCPCS: 36415; 74176; 80048; 81001; 85025; 87086; 96361; 96374; 99284; J1885

== ENCOUNTER 2016-09-27 10:50 | Emergency (ER) | payer BC ==
[2016-09-27] MEDS ORDERED: KETOROLAC 30 MG/ML VIAL (J1885) As Ordered ONE (11:22)
[2016-09-27] MEDS ORDERED: ONDANSETRON 4MG/2ML VIAL (J2405) As Ordered ONE (11:22)
[2016-09-27 11:50] LABS: BASO % 0.4 % (0.0-1.0); EOS # 0.2 K/mm3 (0.0-0.50); EOS % 1.9 % (0.0-3.0); LARGE UNSTAINED CELL # 0.2 K/mm3 (0.0-0.4); LARGE UNSTAINED CELL % 1.5 % (0.0-4.0); LYMPH # 1.2 K/mm3 (1.5-4.5); LYMPH % 10.1 % (24.0-44.0); MEAN CORPUSCULAR HEMOGLOBIN 29.1 pg (27.0-33.0); MEAN CORPUSCULAR HGB CONC 34.5 g/dl (32.0-36.5); MEAN CORPUSCULAR VOLUME 84.4 fl (80.0-96.0); MONO # 0.7 K/mm3 (0.0-0.8); MONO % 7.2 % (0.0-5.0); NEUTROPHILS % 78.8 % (36.0-66.0); PLATELET COUNT, AUTOMATED 181 k/mm3 (150-450); WHITE BLOOD COUNT 10.2 K/mm3 (4.0-10.0)
[2016-09-27 12:07] LABS: ANION GAP 8 MEQ/L (8-16); BLOOD UREA NITROGEN 17 MG/DL (7-18); CALCIUM LEVEL 8.3 MG/DL (8.5-10.1); CARBON DIOXIDE LEVEL 27 MEQ/L (21-32); CHLORIDE LEVEL 105 MEQ/L (98-107); CREATININE FOR GFR 1.17 MG/DL (0.70-1.30); GLOMERULAR FILTRATION RATE > 60.0 (>60); GLUCOSE, FASTING 99 MG/DL (70-105); POTASSIUM SERUM 4.2 MEQ/L (3.5-5.1); SODIUM LEVEL 140 MEQ/L (136-145)
--- NOTE | 2016-09-27 12:16 | REP ---
CT abdomen pelvis without IV or bowel contrast: Comparison is 09/23/2016. The left ureteral calculus has migrated into the urinary bladder and may be within the intramural portion of the distal left ureter or could have entirely passed into the urinary bladder. There is persisting left hydronephrosis which could be from persisting spasm of the distal left ureter or from the calculus to be within the intramural portion of the distal left ureter. Multiple bilateral nonobstructive renal calculi are again noted. Diverticulosis without diverticulitis of the descending colon and sigmoid colon is again noted. The focal panniculitis noted previously is less apparent today. There are no other interval changes. Signed by Lizandro Bellamy MD 09/27/2016 12:07 P
--- NOTE | 2016-09-27 13:48 | EDDOCDS ---
Nurse's Notes [facility] Name: Ephraim Reyes Age: 50 yrs Sex: Male : 1965 Arrival Date: 09/27/2016 Time: 10:50 Bed I2 / M2 Private MD: Ephraim Henriquez H. Diagnosis: Calculus of kidney with calculus of ureter Presentation: 09/27 10:55 Presenting complaint: Patient states: was seen on Friday diagnosed with kidney stone - hs1 patient states symptoms have gotten progressively worse. has not notified urologist. Patient states level of pain unbearable. Acute neurological deficits are not present. Mechanism of Injury: No Mechanism of Injury. Adult Sepsis Screening: The patient does not have new or worsening altered mentation. Patient's respiratory rate is less than 22. Systolic blood pressure is greater than 100. Patient has a qSOFA score of 0- Negative Sepsis Screen. Suicide/Homicide risk assessment- the patient denies having any suicidal and/or homicidal ideations and does not present with any other emotional, behavioral or mental health complaints. Status: Patient is not a financial services internship or dependent. Transition of care: patient was not received from another setting of care. 10:55 Acuity: JAMMIE Level 3 hs1 10:55 Method Of Arrival: Walkin/Carried/Asstd hs1 Triage Assessment: 10:58 General: Appears uncomfortable, Behavior is appropriate for age, cooperative. Pain: hs1 Location: left flank Pain currently is 9 out of 10 on a pain scale. Pain: Quality of pain is described as increasingly sharp pain radiates from left side around to testicle, states that Percocet has not touched pain. HIV screening NA for this visit Offered previously. Neurological: No deficits noted. GI: Reports nausea, vomiting. : Reports difficulty voiding. Musculoskeletal: No deficits noted. Historical: - Allergies: PENICILLINS (Rash); - Home Meds: 1. ibuprofen 800 mg Oral tab 2. Percocet 5-325 mg Oral tab 2 tabs (Last dose: 09/27/2016 00:02) 3. Zofran (as hydrochloride) 4 mg Oral tab (Last dose: 09/27/2016 00:02) 4. tamsulosin 0.4 mg oral cp24 (Last dose: 09/26/2016 20:00) - PMHx: Renal Calculi; - PSHx: kidney stone removal; - Social history: Smoking status: Patient states was never smoker of tobacco. No barriers to communication noted, The patient speaks fluent [place], Speaks appropriately for age. - Family history: Not pertinent. - : The pt / caregiver states he / she is not on anticoagulants. Home medication list is obtained from the patient. - Exposure Risk Screening:: None identified. Screenin:40 Screening information is obtained from the patient. Fall risk: No risks identified. jo3 Assistance ADL's: requires no assistance with activities of daily living. Abuse/DV Screen: The patient / caregiver reports he/she is: not in a situation that causes fear, pain or injury. Nutritional screening: No deficits noted. Advance Directives: There is no active DNR order. home support is adequate. Assessment: 11:31 General: Appears uncomfortable. + left flank pain that is non radiating. + nausea jmk without vomiting. abd is soft and non distended with bowel sounds present x 4. . GI: Abdomen is flat, non- distended Bowel sounds present X 4 quads. Abd is soft and non tender X 4 quads. 11:44 General: Appears states pain has decreased to 4/10, calmer presentation. jmk 12:35 Reassessment: Patient appears in no apparent distress at this time. Patient states jo3 feeling better. Patient states symptoms have improved. Resting on stretcher in state of comfort. Awaiting results for disposition. Aware of plan of care . 13:40 General: Appears in no apparent distress, comfortable, Behavior is appropriate for age, jo3 cooperative, pleasant. Neurological: Level of Consciousness is awake, alert, Oriented to person, place, time. Cardiovascular: No deficits noted. Respiratory: Airway is patent Respiratory effort is even, unlabored. Derm: Skin is pink, warm & dry. Vital Signs: 10:52 BP 133 / 79; Pulse 90; Resp 18; Temp 98.1(O); Pulse Ox 98% on R/A; Weight 86.18 kg (R); ct3 Height 5 ft. 8 in. (172.72 cm) (R); Pain 9/10; 13:40 BP 148 / 83; Pulse 73; Resp 16; Temp 96.9(T); Pulse Ox 98% on R/A; jo3 10:52 Body Mass Index 28.89 (86.18 kg, 172.72 cm) ct3 Vitals: 10:52 Log In Time: September 27, 2016 at 10:51. ct3 ED Course: 10:52 Patient visited by Luci Murrieta PCA. ct3 10:52 Ephraim Henriquez is Private Physician. ct3 10:52 Patient moved to Waiting ct3 10:54 Patient moved to Pre RCE ct3 10:56 Triage Initiated hs1 10:59 Patient moved to I2 / M2 hs1 11:03 Sarthak Zheng PA is PHCP. btw 11:03 Cyn Epperson MD is Attending Physician. btw 11:16 Patient visited by Sarthak Zheng PA. btw 11:31 Urine Culture Sent. jmk 11:31 Urinalysis Sent. jmk 11:31 Inserted saline lock: 20 gauge in right antecubital area. jmk 11:54 [facility] [place] Payment Agreement was scanned into [employer] and attached to record. mm15 12:34 CT ABD & PELVIS: No Contrast Returned. EDMS 13:00 Patient visited by Nkechi Arnold RN. jo3 13:17 Jhon Moulton is Referral Physician. btw 13:40 The patient / caregiver is instructed regarding the plan of care and ED course. jo3 13:40 Discontinued IV lock intact, bleeding controlled, pressure dressing applied, No jo3 redness/swelling at site. No procedures done that require assistance. Administered Medications: 11:30 Drug: Ondansetron 4 mg Route: IVP; Site: right antecubital; jmk 11:30 Drug: NS 0.9% 1000 ml Route: IV; Rate: bolus; Site: right antecubital; jmk 11:31 Drug: ketorolac 30 mg [ketorolac 30 mg/mL (1 mL) injection solution (1 mL)] Route: IVP; [facility] Site: right antecubital; 11:43 Follow up: Response: Pain is decreased [facility] Order Results: Lab Order: Urinalysis; SPEC'M 09/27/16 11:29 Test: APPEARANCE, URINE; Value: HAZY; Range: CLEAR; Status: F Test: COLOR, URINE; Value: YELLOW; Range: YELLOW; Status: F Test: PH,URINE; Value: 5.0; Range: 5.0-9.0; Units: UNITS; Status: F Test: SPECIFIC GRAVITY URINE AUTO; Value: 1.020; Range: 1.002-1.035; Status: F Test: PROTEIN, URINE AUTO; Value: NEGATIVE; Range: NEGATIVE; Units: mg/dL; Status: F Test: GLUCOSE, URINE (UA) AUTO; Value: NEGATIVE; Range: NEGATIVE; Units: mg/dL; Status: F Test: KETONE, URINE AUTO; Value: NEGATIVE; Range: NEGATIVE; Units: mg/dL; Status: F Test: UROBILINOGEN, URINE AUTO; Value: 0.2; Range: 0.0-2.0; Units: mg/dL; Status: F Test: BILIRUBIN, URINE AUTO; Value: NEGATIVE; Range: NEGATIVE; Status: F Test: NITRITE, URINE AUTO; Value: NEGATIVE; Range: NEGATIVE; Status: F Test: LEUKOCYTE ESTERASE, URINE AUTO; Value: NEGATIVE; Range: NEGATIVE; Status: F Test: BLOOD, URINE BLOOD; Value: 2+; Range: NEGATIVE; Abnormal: Above high normal; Status: F Test: WBC, URINE AUTO; Value: 4; Range: 0-3; Abnormal: Above high normal; Units: /HPF; Status: F Test: RBC, URINE AUTO; Value: 54; Range: 0-3; Abnormal: Above high normal; Units: /HPF; Status: F Test: BACTERIA, URINE AUTO; Value: NEGATIVE; Range: NEGATIVE; Status: F Test: SQUAMOUS EPITHELIAL CELL UR AU; Value: 0; Range: 0-6; Units: /HPF; Status: F Test: MUCUS, URINE; Value: SMALL; Range: NEGATIVE; Status: F Test: HYALINE CAST, URINE AUTO; Value: 0; Range: 0-1; Units: /LPF; Status: F Lab Order: CBC with Diff; SPEC'M 09/27/16 11:13 Test: WHITE BLOOD COUNT; Value: 10.2; Range: 4.0-10.0; Abnormal: Above high normal; Units: K/mm3; Status: F Test: RED BLOOD COUNT; Value: 5.22; Range: 4.30-6.10; Units: M/mm3; Status: F Test: HEMOGLOBIN; Value: 15.2; Range: 14.0-18.0; Units: g/dl; Status: F Test: HEMATOCRIT; Value: 44.0; Range: 42.0-52.0; Units: %; Status: F Test: MEAN CORPUSCULAR VOLUME; Value: 84.4; Range: 80.0-96.0; Units: fl; Status: F Test: MEAN CORPUSCULAR HEMOGLOBIN; Value: 29.1; Range: 27.0-33.0; Units: pg; Status: F Test: MEAN CORPUSCULAR HGB CONC; Value: 34.5; Range: 32.0-36.5; Units: g/dl; Status: F Test: RED CELL DISTRIBUTION WIDTH; Value: 13.0; Range: 11.5-14.5; Units: %; Status: F Test: PLATELET COUNT, AUTOMATED; Value: 181; Range: 150-450; Units: k/mm3; Status: F Test: NEUTROPHILS %; Value: 78.8; Range: 36.0-66.0; Abnormal: Above high normal; Units: %; Status: F Test: LYMPH %; Value: 10.1; Range: 24.0-44.0; Abnormal: Below low normal; Units: %; Status: F Test: MONO %; Value: 7.2; Range: 0.0-5.0; Abnormal: Above high normal; Units: %; Status: F Test: EOS %; Value: 1.9; Range: 0.0-3.0; Units: %; Status: F Test: BASO %; Value: 0.4; Range: 0.0-1.0; Units: %; Status: F Test: LARGE UNSTAINED CELL %; Value: 1.5; Range: 0.0-4.0; Units: %; Status: F Test: NEUTROPHILS #; Value: 8.0; Range: 1.8-7.7; Abnormal: Above high normal; Units: K/mm3; Status: F Test: LYMPH #; Value: 1.2; Range: 1.5-4.5; Abnormal: Below low normal; Units: K/mm3; Status: F Test: MONO #; Value: 0.7; Range: 0.0-0.8; Units: K/mm3; Status: F Test: EOS #; Value: 0.2; Range: 0.0-0.50; Units: K/mm3; Status: F Test: BASO #; Value: 0.0; Range: 0.0-0.2; Units: K/mm3; Status: F Test: LARGE UNSTAINED CELL #; Value: 0.2; Range: 0.0-0.4; Units: K/mm3; Status: F Lab Order: VILMA CHAHAL 09/27/16 11:41 Test: GLUCOSE, FASTING; Value: 99; Range: 70-105; Units: MG/DL; Status: F Test: BLOOD UREA NITROGEN; Value: 17; Range: 7-18; Units: MG/DL; Status: F Test: CREATININE FOR GFR; Value: 1.17; Range: 0.70-1.30; Units: MG/DL; Status: F Test: GLOMERULAR FILTRATION RATE; Value: > 60.0; Range: >60; Status: F Test: SODIUM LEVEL; Value: 140; Range: 136-145; Units: MEQ/L; Status: F Test: POTASSIUM SERUM; Value: 4.2; Range: 3.5-5.1; Units: MEQ/L; Status: F Test: CHLORIDE LEVEL; Value: 105; Range: 98-107; Units: MEQ/L; Status: F Test: CARBON DIOXIDE LEVEL; Value: 27; Range: 21-32; Units: MEQ/L; Status: F Test: ANION GAP; Value: 8; Range: 8-16; Units: MEQ/L; Status: F Test: CALCIUM LEVEL; Value: 8.3; Range: 8.5-10.1; Abnormal: Below low normal; Units: MG/DL; Status: F Test Note: ; Units are mL/min/1.73 m2 Chronic Kidney Disease Staging per NKF: Stage I & II GFR >=60 Normal to Mildly Decreased Stage III GFR 30-59 Moderately Decreased Stage IV GFR 15-29 Severely Decreased Stage V GFR <15 Very Little GFR Left ESRD GFR <15 on [employer]NAGER [employer]ELOPMENT Radiology Order: CT ABD & PELVIS: No Contrast Test: CT ABD & PELVIS: No Contrast REASON FOR EXAMINATION: Flank pain; CT abdomen pelvis without IV or bowel contrast:; ; Comparison is 09/23/2016.; ; The left ureteral calculus has migrated into the urinary bladder and may be; within the intramural portion of the distal left ureter or could have entirely; passed into the urinary bladder. There is persisting left hydronephrosis which; could be from persisting spasm of the distal left ureter or from the calculus to; be within the intramural portion of the distal left ureter.; ; Multiple bilateral nonobstructive renal calculi are again noted.; ; Diverticulosis without diverticulitis of the descending colon and sigmoid colon; is again noted.; ; The focal panniculitis noted previously is less apparent today.; ; There are no other interval changes.; ; ; Signed by; Lizandro Bellamy MD 09/27/2016 12:07 P; Outcome: 13:18 Discharge ordered by Provider. btw 13:40 Discharge Assessment: Patient awake, alert and oriented x 3. No cognitive and/or jo3 functional deficits noted. Patient verbalized understanding of disposition instructions. patient administered narcotics - no. The following High Risk Discharge criteria are identified: None. Discharged to home ambulatory, with significant other. Condition: stable Condition: improved. Discharge instructions given to patient, Instructed on discharge instructions, follow up and referral plans. medication usage. 13:47 Patient left the ED. jo3 Signatures: Dispatcher [employer] EDMS Pérez Sequeira,RN RN Nkechi Mcneill RN RN jo3 Sarthak Zheng PA PA btw Leila Morris RN RN hs1 Luci Murrieta, WICKER WORKER WICKER WORKER ct3 Skye Gaviria mm15 MTDD
--- NOTE | 2016-09-27 13:48 | EDDOCDS ---
Physician Documentation [facility] Name: Ephraim Reyes Age: 50 yrs Sex: Male : 1965 Arrival Date: 09/27/2016 Time: 10:50 Bed I2 / M2 Private MD: Ephraim Henriquez H. Disposition: 09/27/16 13:18 Discharged to Home/Self Care. Impression: Calculus of kidney with calculus of ureter. - Condition is Stable. - Discharge Instructions: Kidney Stones, [id number]. - Prescriptions for etodolac 200 mg Oral Capsule - take 1 capsule by ORAL route 3 times per day; 30 capsule. - Medication Reconciliation, Local Pharmacy Hours form. - Follow up: Jhon Moulton; When: Call to arrange an appointment; Reason: Further diagnostic work-up, Recheck today's complaints, Continuance of care. - Problem is an acute exacerbation. - Symptoms have improved. Historical: - Allergies: PENICILLINS (Rash); - Home Meds: 1. ibuprofen 800 mg Oral tab 2. Percocet 5-325 mg Oral tab 2 tabs (Last dose: 09/27/2016 00:02) 3. Zofran (as hydrochloride) 4 mg Oral tab (Last dose: 09/27/2016 00:02) 4. tamsulosin 0.4 mg oral cp24 (Last dose: 09/26/2016 20:00) - PMHx: Renal Calculi; - PSHx: kidney stone removal; - Social history: Smoking status: Patient states was never smoker of tobacco. No barriers to communication noted, The patient speaks fluent Korean, Speaks appropriately for age. - Family history: Not pertinent. - : The pt / caregiver states he / she is not on anticoagulants. Home medication list is obtained from the patient. - Exposure Risk Screening:: None identified. Vital Signs: 09/27 10:52 BP 133 / 79; Pulse 90; Resp 18; Temp 98.1(O); Pulse Ox 98% on R/A; Weight 86.18 kg / ct3 189.99 lbs (R); Height 5 ft. 8 in. (172.72 cm) (R); Pain 9/10; 13:40 BP 148 / 83; Pulse 73; Resp 16; Temp 96.9(T); Pulse Ox 98% on R/A; jo3 10:52 Body Mass Index 28.89 (86.18 kg, 172.72 cm) ct3 MDM: 10:55 Urinalysis Ordered. EDMS 10:55 Urine Culture Ordered. EDMS 11:22 IV Saline Lock ordered. btw 11:22 ketorolac 30 mg IVP once ordered. btw 11:22 Ondansetron 4 mg IVP once ordered. btw 11:23 NS 0.9% 1000 ml IV at bolus once ordered. btw 11:23 CBC with Diff Ordered. EDMS 11:23 BMP Ordered. EDMS 11:23 CT ABD & PELVIS: No Contrast Ordered. EDMS 11:43 Financial registration complete. mm15 11:54 [facility] Payment Agreement was scanned into [employer] and attached to record. mm15 12:11 Urinalysis Reviewed. btw 12:11 CBC with Diff Reviewed. btw 12:11 BMP Reviewed. btw 13:16 CT ABD & PELVIS: No Contrast Reviewed. btw Administered Medications: 11:30 Drug: Ondansetron 4 mg Route: IVP; Site: right antecubital; [facility] 11:30 Drug: NS 0.9% 1000 ml Route: IV; Rate: bolus; Site: right antecubital; [facility] 11:31 Drug: ketorolac 30 mg [ketorolac 30 mg/mL (1 mL) injection solution (1 mL)] Route: IVP; [facility] Site: right antecubital; 11:43 Follow up: Response: Pain is decreased chalo Signatures: Dispatcher [employer] EDMT Pérez Sequeira RN RN jmk Helmerci, Jennifer, RN RN jo3 Sarthak Zheng PA PA btw Leila Morris RN RN hs1 Skye Gaviria mm15 The chart was reviewed and I authenticate all verbal orders and agree with the evaluation and treatment provided.Attachments: 11:54 [facility] Payment Agreement mm15 MTDD
--- NOTE | 2016-09-29 14:48 | EDDOCDS ---
Physician Documentation [facility] Name: Ephraim Reyes Age: 50 yrs Sex: Male : 1965 Arrival Date: 09/27/2016 Time: 10:50 Bed I2 / M2 Private MD: Ephraim Henriquez H. Disposition: 09/27/16 13:18 Discharged to Home/Self Care. Impression: Calculus of kidney with calculus of ureter. - Condition is Stable. - Discharge Instructions: Kidney Stones, [id number]. - Prescriptions for etodolac 200 mg Oral Capsule - take 1 capsule by ORAL route 3 times per day; 30 capsule. - Medication Reconciliation, Local Pharmacy Hours form. - Follow up: Jhon Moulton; When: Call to arrange an appointment; Reason: Further diagnostic work-up, Recheck today's complaints, Continuance of care. - Problem is an acute exacerbation. - Symptoms have improved. Historical: - Allergies: PENICILLINS (Rash); - Home Meds: 1. ibuprofen 800 mg Oral tab 2. Percocet 5-325 mg Oral tab 2 tabs (Last dose: 09/27/2016 00:02) 3. Zofran (as hydrochloride) 4 mg Oral tab (Last dose: 09/27/2016 00:02) 4. tamsulosin 0.4 mg oral cp24 (Last dose: 09/26/2016 20:00) - PMHx: Renal Calculi; - PSHx: kidney stone removal; - Social history: Smoking status: Patient states was never smoker of tobacco. No barriers to communication noted, The patient speaks fluent [place] Citizen, Speaks appropriately for age. - Family history: Not pertinent. - : The pt / caregiver states he / she is not on anticoagulants. Home medication list is obtained from the patient. - Exposure Risk Screening:: None identified. Vital Signs: 09/27 10:52 BP 133 / 79; Pulse 90; Resp 18; Temp 98.1(O); Pulse Ox 98% on R/A; Weight 86.18 kg / ct3 189.99 lbs (R); Height 5 ft. 8 in. (172.72 cm) (R); Pain 9/10; 13:40 BP 148 / 83; Pulse 73; Resp 16; Temp 96.9(T); Pulse Ox 98% on R/A; jo3 10:52 Body Mass Index 28.89 (86.18 kg, 172.72 cm) ct3 MDM: 10:55 Urinalysis Ordered. EDMS 10:55 Urine Culture Ordered. EDMS 11:22 IV Saline Lock ordered. btw 11:22 ketorolac 30 mg IVP once ordered. btw 11:22 Ondansetron 4 mg IVP once ordered. btw 11:23 NS 0.9% 1000 ml IV at bolus once ordered. btw 11:23 CBC with Diff Ordered. EDMS 11:23 BMP Ordered. EDMS 11:23 CT ABD & PELVIS: No Contrast Ordered. EDMS 11:43 Financial registration complete. mm15 11:54 [facility] Payment Agreement was scanned into [employer] and attached to record. mm15 12:11 Urinalysis Reviewed. btw 12:11 CBC with Diff Reviewed. btw 12:11 BMP Reviewed. btw 13:16 CT ABD & PELVIS: No Contrast Reviewed. btw 09/28 14:37 T-Sheet-- Draft Copy was scanned into [employer] and attached to record. gb Administered Medications: 09/27 11:30 Drug: Ondansetron 4 mg Route: IVP; Site: right antecubital; [place] 11:30 Drug: NS 0.9% 1000 ml Route: IV; Rate: bolus; Site: right antecubital; [place] 11:31 Drug: ketorolac 30 mg [ketorolac 30 mg/mL (1 mL) injection solution (1 mL)] Route: IVP; chalo Site: right antecubital; 11:43 Follow up: Response: Pain is decreased chalo Signatures: Dispatcher [employer] EDMS Pérez Sequeira,RN RN doek Marilou Jensen, Reg Reg Nkechi ZamoraRN RN jo3 Sarthak Zheng PA PA btw Leila Morris RN RN hs1 Skye Gaviria mm15 The chart was reviewed and I authenticate all verbal orders and agree with the evaluation and treatment provided.Attachments: 11:54 [facility] Payment Agreement mm15 09/28 14:37 T-Sheet-- Draft Copy gb Chart Complete MTDD
--- NOTE | 2016-09-29 14:48 | EDDOCDS ---
Physician Documentation [facility] Name: Ephraim Reyes Age: 50 yrs Sex: Male : 1965 Arrival Date: 09/27/2016 Time: 10:50 Bed I2 / M2 Private MD: Ephraim Henriquez H. Disposition: 09/27/16 13:18 Discharged to Home/Self Care. Impression: Calculus of kidney with calculus of ureter. - Condition is Stable. - Discharge Instructions: Kidney Stones, [id number]. - Prescriptions for etodolac 200 mg Oral Capsule - take 1 capsule by ORAL route 3 times per day; 30 capsule. - Medication Reconciliation, Local Pharmacy Hours form. - Follow up: Jhon Moulton; When: Call to arrange an appointment; Reason: Further diagnostic work-up, Recheck today's complaints, Continuance of care. - Problem is an acute exacerbation. - Symptoms have improved. Historical: - Allergies: PENICILLINS (Rash); - Home Meds: 1. ibuprofen 800 mg Oral tab 2. Percocet 5-325 mg Oral tab 2 tabs (Last dose: 09/27/2016 00:02) 3. Zofran (as hydrochloride) 4 mg Oral tab (Last dose: 09/27/2016 00:02) 4. tamsulosin 0.4 mg oral cp24 (Last dose: 09/26/2016 20:00) - PMHx: Renal Calculi; - PSHx: kidney stone removal; - Social history: Smoking status: Patient states was never smoker of tobacco. No barriers to communication noted, The patient speaks fluent [place], Speaks appropriately for age. - Family history: Not pertinent. - : The pt / caregiver states he / she is not on anticoagulants. Home medication list is obtained from the patient. - Exposure Risk Screening:: None identified. Vital Signs: 09/27 10:52 BP 133 / 79; Pulse 90; Resp 18; Temp 98.1(O); Pulse Ox 98% on R/A; Weight 86.18 kg / ct3 189.99 lbs (R); Height 5 ft. 8 in. (172.72 cm) (R); Pain 9/10; 13:40 BP 148 / 83; Pulse 73; Resp 16; Temp 96.9(T); Pulse Ox 98% on R/A; jo3 10:52 Body Mass Index 28.89 (86.18 kg, 172.72 cm) ct3 MDM: 10:55 Urinalysis Ordered. EDMS 10:55 Urine Culture Ordered. EDMS 11:22 IV Saline Lock ordered. btw 11:22 ketorolac 30 mg IVP once ordered. btw 11:22 Ondansetron 4 mg IVP once ordered. btw 11:23 NS 0.9% 1000 ml IV at bolus once ordered. btw 11:23 CBC with Diff Ordered. EDMS 11:23 BMP Ordered. EDMS 11:23 CT ABD & PELVIS: No Contrast Ordered. EDMS 11:43 Financial registration complete. mm15 11:54 [facility] Payment Agreement was scanned into [employer] and attached to record. mm15 12:11 Urinalysis Reviewed. btw 12:11 CBC with Diff Reviewed. btw 12:11 BMP Reviewed. btw 13:16 CT ABD & PELVIS: No Contrast Reviewed. btw 09/28 14:37 T-Sheet-- Draft Copy was scanned into [employer] and attached to record. gb Administered Medications: 09/27 11:30 Drug: Ondansetron 4 mg Route: IVP; Site: right antecubital; [place] 11:30 Drug: NS 0.9% 1000 ml Route: IV; Rate: bolus; Site: right antecubital; [place] 11:31 Drug: ketorolac 30 mg [ketorolac 30 mg/mL (1 mL) injection solution (1 mL)] Route: IVP; [place] Site: right antecubital; 11:43 Follow up: Response: Pain is decreased chalo Signatures: Dispatcher [employer] EDMS Pérez Sequeira,RN RN doek Marilou Jensen, Reg Reg Nkechi ZamoraRN RN jo3 Sarthak Zheng PA PA btw Leila Morris RN RN hs1 Skye Gaviria mm15 The chart was reviewed and I authenticate all verbal orders and agree with the evaluation and treatment provided.Attachments: 11:54 [facility] Payment Agreement mm15 09/28 14:37 T-Sheet-- Draft Copy gb Chart Complete MTDD
--- NOTE | 2016-09-29 14:49 | EDDOCDS ---
Nurse's Notes [facility] Name: Ephraim Reyes Age: 50 yrs Sex: Male : 1965 Arrival Date: 09/27/2016 Time: 10:50 Bed I2 / M2 Private MD: Ephraim Henriquez H. Diagnosis: Calculus of kidney with calculus of ureter Presentation: 09/27 10:55 Presenting complaint: Patient states: was seen on Friday diagnosed with kidney stone - hs1 patient states symptoms have gotten progressively worse. has not notified urologist. Patient states level of pain unbearable. Acute neurological deficits are not present. Mechanism of Injury: No Mechanism of Injury. Adult Sepsis Screening: The patient does not have new or worsening altered mentation. Patient's respiratory rate is less than 22. Systolic blood pressure is greater than 100. Patient has a qSOFA score of 0- Negative Sepsis Screen. Suicide/Homicide risk assessment- the patient denies having any suicidal and/or homicidal ideations and does not present with any other emotional, behavioral or mental health complaints. Status: Patient is not a ramp service employee or dependent. Transition of care: patient was not received from another setting of care. 10:55 Acuity: JAMMIE Level 3 hs1 10:55 Method Of Arrival: Walkin/Carried/Asstd hs1 Triage Assessment: 10:58 General: Appears uncomfortable, Behavior is appropriate for age, cooperative. Pain: hs1 Location: left flank Pain currently is 9 out of 10 on a pain scale. Pain: Quality of pain is described as increasingly sharp pain radiates from left side around to testicle, states that Percocet has not touched pain. HIV screening NA for this visit Offered previously. Neurological: No deficits noted. GI: Reports nausea, vomiting. : Reports difficulty voiding. Musculoskeletal: No deficits noted. Historical: - Allergies: PENICILLINS (Rash); - Home Meds: 1. ibuprofen 800 mg Oral tab 2. Percocet 5-325 mg Oral tab 2 tabs (Last dose: 09/27/2016 00:02) 3. Zofran (as hydrochloride) 4 mg Oral tab (Last dose: 09/27/2016 00:02) 4. tamsulosin 0.4 mg oral cp24 (Last dose: 09/26/2016 20:00) - PMHx: Renal Calculi; - PSHx: kidney stone removal; - Social history: Smoking status: Patient states was never smoker of tobacco. No barriers to communication noted, The patient speaks fluent Icelandic, Speaks appropriately for age. - Family history: Not pertinent. - : The pt / caregiver states he / she is not on anticoagulants. Home medication list is obtained from the patient. - Exposure Risk Screening:: None identified. Screenin:40 Screening information is obtained from the patient. Fall risk: No risks identified. jo3 Assistance ADL's: requires no assistance with activities of daily living. Abuse/DV Screen: The patient / caregiver reports he/she is: not in a situation that causes fear, pain or injury. Nutritional screening: No deficits noted. Advance Directives: There is no active DNR order. home support is adequate. Assessment: 11:31 General: Appears uncomfortable. + left flank pain that is non radiating. + nausea jmk without vomiting. abd is soft and non distended with bowel sounds present x 4. . GI: Abdomen is flat, non- distended Bowel sounds present X 4 quads. Abd is soft and non tender X 4 quads. 11:44 General: Appears states pain has decreased to 4/10, calmer presentation. jmk 12:35 Reassessment: Patient appears in no apparent distress at this time. Patient states jo3 feeling better. Patient states symptoms have improved. Resting on stretcher in state of comfort. Awaiting results for disposition. Aware of plan of care . 13:40 General: Appears in no apparent distress, comfortable, Behavior is appropriate for age, jo3 cooperative, pleasant. Neurological: Level of Consciousness is awake, alert, Oriented to person, place, time. Cardiovascular: No deficits noted. Respiratory: Airway is patent Respiratory effort is even, unlabored. Derm: Skin is pink, warm & dry. Vital Signs: 10:52 BP 133 / 79; Pulse 90; Resp 18; Temp 98.1(O); Pulse Ox 98% on R/A; Weight 86.18 kg (R); ct3 Height 5 ft. 8 in. (172.72 cm) (R); Pain 9/10; 13:40 BP 148 / 83; Pulse 73; Resp 16; Temp 96.9(T); Pulse Ox 98% on R/A; jo3 10:52 Body Mass Index 28.89 (86.18 kg, 172.72 cm) ct3 Vitals: 10:52 Log In Time: September 27, 2016 at 10:51. ct3 ED Course: 10:52 Patient visited by Luci Murrieta PCA. ct3 10:52 Ephraim Henriquez is Private Physician. ct3 10:52 Patient moved to Waiting ct3 10:54 Patient moved to Pre RCE ct3 10:56 Triage Initiated hs1 10:59 Patient moved to I2 / M2 hs1 11:03 Sarthak Zheng PA is PHCP. btw 11:03 Cyn Epperson MD is Attending Physician. btw 11:16 Patient visited by Sarthak Zheng PA. btw 11:31 Urine Culture Sent. jmk 11:31 Urinalysis Sent. jmk 11:31 Inserted saline lock: 20 gauge in right antecubital area. jmk 11:54 [facility] Payment Agreement was scanned into [employer] and attached to record. mm15 12:34 CT ABD & PELVIS: No Contrast Returned. EDMS 13:00 Patient visited by Nkechi Arnold RN. jo3 13:17 Jhon Moulton is Referral Physician. btw 13:40 The patient / caregiver is instructed regarding the plan of care and ED course. jo3 13:40 Discontinued IV lock intact, bleeding controlled, pressure dressing applied, No jo3 redness/swelling at site. No procedures done that require assistance. 09/28 14:37 T-Sheet-- Draft Copy was scanned into [employer] and attached to record. gb Administered Medications: 09/27 11:30 Drug: Ondansetron 4 mg Route: IVP; Site: right antecubital; k 11:30 Drug: NS 0.9% 1000 ml Route: IV; Rate: bolus; Site: right antecubital; jmk 11:31 Drug: ketorolac 30 mg [ketorolac 30 mg/mL (1 mL) injection solution (1 mL)] Route: IVP; chalo Site: right antecubital; 11:43 Follow up: Response: Pain is decreased rosanne Order Results: Lab Order: Urinalysis; SPEC'M 09/27/16 11:29 Test: APPEARANCE, URINE; Value: HAZY; Range: CLEAR; Status: F Test: COLOR, URINE; Value: YELLOW; Range: YELLOW; Status: F Test: PH,URINE; Value: 5.0; Range: 5.0-9.0; Units: UNITS; Status: F Test: SPECIFIC GRAVITY URINE AUTO; Value: 1.020; Range: 1.002-1.035; Status: F Test: PROTEIN, URINE AUTO; Value: NEGATIVE; Range: NEGATIVE; Units: mg/dL; Status: F Test: GLUCOSE, URINE (UA) AUTO; Value: NEGATIVE; Range: NEGATIVE; Units: mg/dL; Status: F Test: KETONE, URINE AUTO; Value: NEGATIVE; Range: NEGATIVE; Units: mg/dL; Status: F Test: UROBILINOGEN, URINE AUTO; Value: 0.2; Range: 0.0-2.0; Units: mg/dL; Status: F Test: BILIRUBIN, URINE AUTO; Value: NEGATIVE; Range: NEGATIVE; Status: F Test: NITRITE, URINE AUTO; Value: NEGATIVE; Range: NEGATIVE; Status: F Test: LEUKOCYTE ESTERASE, URINE AUTO; Value: NEGATIVE; Range: NEGATIVE; Status: F Test: BLOOD, URINE BLOOD; Value: 2+; Range: NEGATIVE; Abnormal: Above high normal; Status: F Test: WBC, URINE AUTO; Value: 4; Range: 0-3; Abnormal: Above high normal; Units: /HPF; Status: F Test: RBC, URINE AUTO; Value: 54; Range: 0-3; Abnormal: Above high normal; Units: /HPF; Status: F Test: BACTERIA, URINE AUTO; Value: NEGATIVE; Range: NEGATIVE; Status: F Test: SQUAMOUS EPITHELIAL CELL UR AU; Value: 0; Range: 0-6; Units: /HPF; Status: F Test: MUCUS, URINE; Value: SMALL; Range: NEGATIVE; Status: F Test: HYALINE CAST, URINE AUTO; Value: 0; Range: 0-1; Units: /LPF; Status: F Lab Order: Urine Culture; SPEC'M 09/27/16 11:29 Test: URINE CULTURE; Value: <EXTERNAL COMMENT eCWMed> FULL REPORT IN LAB NOTES (eCW and Medent).; Status: F Test: URINE CULTURE; Value: URINE CULTURE RESULT NO GROWTH CLINICAL SIGNIFICANCE 1 ORGANISM; Status: F Lab Order: CBC with Diff; SPEC'M 09/27/16 11:13 Test: WHITE BLOOD COUNT; Value: 10.2; Range: 4.0-10.0; Abnormal: Above high normal; Units: K/mm3; Status: F Test: RED BLOOD COUNT; Value: 5.22; Range: 4.30-6.10; Units: M/mm3; Status: F Test: HEMOGLOBIN; Value: 15.2; Range: 14.0-18.0; Units: g/dl; Status: F Test: HEMATOCRIT; Value: 44.0; Range: 42.0-52.0; Units: %; Status: F Test: MEAN CORPUSCULAR VOLUME; Value: 84.4; Range: 80.0-96.0; Units: fl; Status: F Test: MEAN CORPUSCULAR HEMOGLOBIN; Value: 29.1; Range: 27.0-33.0; Units: pg; Status: F Test: MEAN CORPUSCULAR HGB CONC; Value: 34.5; Range: 32.0-36.5; Units: g/dl; Status: F Test: RED CELL DISTRIBUTION WIDTH; Value: 13.0; Range: 11.5-14.5; Units: %; Status: F Test: PLATELET COUNT, AUTOMATED; Value: 181; Range: 150-450; Units: k/mm3; Status: F Test: NEUTROPHILS %; Value: 78.8; Range: 36.0-66.0; Abnormal: Above high normal; Units: %; Status: F Test: LYMPH %; Value: 10.1; Range: 24.0-44.0; Abnormal: Below low normal; Units: %; Status: F Test: MONO %; Value: 7.2; Range: 0.0-5.0; Abnormal: Above high normal; Units: %; Status: F Test: EOS %; Value: 1.9; Range: 0.0-3.0; Units: %; Status: F Test: BASO %; Value: 0.4; Range: 0.0-1.0; Units: %; Status: F Test: LARGE UNSTAINED CELL %; Value: 1.5; Range: 0.0-4.0; Units: %; Status: F Test: NEUTROPHILS #; Value: 8.0; Range: 1.8-7.7; Abnormal: Above high normal; Units: K/mm3; Status: F Test: LYMPH #; Value: 1.2; Range: 1.5-4.5; Abnormal: Below low normal; Units: K/mm3; Status: F Test: MONO #; Value: 0.7; Range: 0.0-0.8; Units: K/mm3; Status: F Test: EOS #; Value: 0.2; Range: 0.0-0.50; Units: K/mm3; Status: F Test: BASO #; Value: 0.0; Range: 0.0-0.2; Units: K/mm3; Status: F Test: LARGE UNSTAINED CELL #; Value: 0.2; Range: 0.0-0.4; Units: K/mm3; Status: F Lab Order: [facility]; SPEC'M 09/27/16 11:41 Test: GLUCOSE, FASTING; Value: 99; Range: 70-105; Units: MG/DL; Status: F Test: BLOOD UREA NITROGEN; Value: 17; Range: 7-18; Units: MG/DL; Status: F Test: CREATININE FOR GFR; Value: 1.17; Range: 0.70-1.30; Units: MG/DL; Status: F Test: GLOMERULAR FILTRATION RATE; Value: > 60.0; Range: >60; Status: F Test: SODIUM LEVEL; Value: 140; Range: 136-145; Units: MEQ/L; Status: F Test: POTASSIUM SERUM; Value: 4.2; Range: 3.5-5.1; Units: MEQ/L; Status: F Test: CHLORIDE LEVEL; Value: 105; Range: 98-107; Units: MEQ/L; Status: F Test: CARBON DIOXIDE LEVEL; Value: 27; Range: 21-32; Units: MEQ/L; Status: F Test: ANION GAP; Value: 8; Range: 8-16; Units: MEQ/L; Status: F Test: CALCIUM LEVEL; Value: 8.3; Range: 8.5-10.1; Abnormal: Below low normal; Units: MG/DL; Status: F Test Note: ; Units are mL/min/1.73 m2 Chronic Kidney Disease Staging per NKF: Stage I & II GFR >=60 Normal to Mildly Decreased Stage III GFR 30-59 Moderately Decreased Stage IV GFR 15-29 Severely Decreased Stage V GFR <15 Very Little GFR Left ESRD GFR <15 on COMMUNICATION SPEC Radiology Order: CT ABD & PELVIS: No Contrast Test: CT ABD & PELVIS: No Contrast REASON FOR EXAMINATION: Flank pain; CT abdomen pelvis without IV or bowel contrast:; ; Comparison is 09/23/2016.; ; The left ureteral calculus has migrated into the urinary bladder and may be; within the intramural portion of the distal left ureter or could have entirely; passed into the urinary bladder. There is persisting left hydronephrosis which; could be from persisting spasm of the distal left ureter or from the calculus to; be within the intramural portion of the distal left ureter.; ; Multiple bilateral nonobstructive renal calculi are again noted.; ; Diverticulosis without diverticulitis of the descending colon and sigmoid colon; is again noted.; ; The focal panniculitis noted previously is less apparent today.; ; There are no other interval changes.; ; ; Signed by; Lizandro Bellamy MD 09/27/2016 12:07 P; Outcome: 13:18 Discharge ordered by Provider. btw 13:40 Discharge Assessment: Patient awake, alert and oriented x 3. No cognitive and/or jo3 functional deficits noted. Patient verbalized understanding of disposition instructions. patient administered narcotics - no. The following High Risk Discharge criteria are identified: None. Discharged to home ambulatory, with significant other. Condition: stable Condition: improved. Discharge instructions given to patient, Instructed on discharge instructions, follow up and referral plans. medication usage. 13:47 Patient left the ED. jo3 Signatures: Dispatcher [employer] EDMS Pérez Sequeira RN RN jmk Barnhardt, Gloria, Nkechi Salcido RN RN jo3 Sarthak Zheng PA PA btw Leila Morris RN RN hs1 Luci Murrieta, FEATHER SEPARATOR FEATHER SEPARATOR ct3 Skye Gaviria mm15 Chart Complete MTDD
== END 2016-09-27 13:47 | disposition home or self-care (01) ==
LOC: M ED 10:50
DX: N13.1 Hydronephrosis with ureteral stricture, not elsewhere classified (principal); Z79.891 Long term (current) use of opiate analgesic; Z79.899 Other long term (current) drug therapy; Z88.0 Allergy status to penicillin
CPT/HCPCS: 74176; 80048; 81001; 85025; 87086; 96374; 96375; 99284; J1885; J2405

== ENCOUNTER → 2018-07-31 | Outpatient (CLI) | payer BC ==
[~2018-07-31] MED LIST: FISH7.5C PO; FLON1SPR
--- NOTE | 2018-07-31 14:40 | REP ---
MAXILLOFACIAL CT WITHOUT CONTRAST: HISTORY: Chronic maxillary sinusitis. Minimal mucosal thickening is present in the ethmoid and right maxillary sinuses. A retention cyst is present in the left maxillary sinus. There remaining sinuses are clear. Mucosal thickening involves the right osteomeatal unit. The left osteomeatal unit. The left osteomeatal unit is patent. The middle and inferior nasal turbinates are partially paradoxical. There is minimal deviation of the nasal septum to the left posteriorly and to the right anteriorly. A spur is present arising from the left side of the nasal septum. The spur abuts the left middle and inferior nasal turbinates. The cribriform plate, medial lobato of the orbits and optic canals are intact. The carotid canals form a segment of the posterolateral lobato of the sphenoid sinus. The sphenoid sinus septa insert into the internal carotid canal lobato. IMPRESSION:1. Sinus mucosal thickening as described above. 2. Left maxillary sinus retention cyst. Electronically Signed by Abhishek Quiroga MD 07/31/2018 02:55 P
== END ==
LOC: M RAD 14:00
PROVIDERS: ATTEND Otolaryngology
DX: J32.8 Other chronic sinusitis (principal)

== ENCOUNTER 2018-08-27 08:24 | Day surgery (SDC) | payer BC ==
[~2018-08-27] VITALS: Ht 172.7 cm; Wt 90.3 kg
[~2018-08-27 08:24] MED LIST changes: +LIDOCAINE 2% INJ 100 MG/5 ML SDV (FOR ANES.) As Ordered ONE; +NS 1,000 ML IV ONE; +PROPOFOL 200 MG/20 ML VIAL As Ordered ONE
--- NOTE | 2018-08-27 09:35 | ROOR ---
Patient Name: Ephraim Reyes Procedure Date: 08/27/2018 9:15 AM Date of : 1965 Age: 52 Room: [facility] Gender: Male Note Status: Finalized Procedure: Colonoscopy Indications: Screening for colorectal malignant neoplasm Providers: Ludin Escobar Jr, MD Referring MD: EPHRAIM PETERSON MD Requesting Provider: Medicines: Propofol per Anesthesia Complications: No immediate complications. Procedure: Pre-Anesthesia Assessment: - Prior to the procedure, a History and Physical was performed, and patient medications and allergies were reviewed. The patient is competent. The risks and benefits of the procedure and the sedation options and risks were discussed with the patient. All questions were answered and informed consent was obtained. Patient identification and proposed procedure were verified by the physician and the nurse in the pre-procedure area and in the procedure room. Mental Status Examination: alert and oriented. Airway Examination: normal oropharyngeal airway and neck mobility. Respiratory Examination: clear to auscultation. CV Examination: normal. ASA Grade Assessment: II - A patient with mild systemic disease. After reviewing the risks and benefits, the patient was deemed in satisfactory condition to undergo the procedure. The anesthesia plan was to use moderate sedation / analgesia (conscious sedation). Immediately prior to administration of medications, the patient was re-assessed for adequacy to receive sedatives. The heart rate, respiratory rate, oxygen saturations, blood pressure, adequacy of pulmonary ventilation, and response to care were monitored throughout the procedure. The physical status of the patient was re-assessed after the procedure. The Colonoscope was introduced through the anus and advanced to the cecum, identified by appendiceal orifice and ileocecal valve. The colonoscopy was performed without difficulty. The patient tolerated the procedure well. The quality of the bowel preparation was good. Findings: The rectum, recto-sigmoid colon, descending colon, transverse colon, ascending colon, cecum, appendiceal orifice and ileocecal valve appeared normal. A few small and large-mouthed diverticula were found in the sigmoid colon. Impression: - The rectum, recto-sigmoid colon, descending colon, transverse colon, ascending colon, cecum, appendiceal orifice and ileocecal valve are normal. - Diverticulosis in the sigmoid colon. - No specimens collected. Recommendation: - Discharge patient to home (ambulatory). - Repeat colonoscopy in 10 years for screening purposes. Ludin Escobar MD Ludin Escobar Jr, MD 08/27/2018 9:35:11 AM This report has been signed electronically. Number of Addenda: 0 Note Initiated On: 08/27/2018 9:15 AM Estimated Blood Loss: Estimated blood loss: none.
[2018-08-27 09:50] VITALS: BP 118/75
== END 2018-08-27 10:02 | disposition home or self-care (01) ==
LOC: M OPP 08:24
PROVIDERS: ATTEND Surgery
DX: Z12.11 Encounter for screening for malignant neoplasm of colon (principal); K57.30 Diverticulosis of large intestine without perforation or abscess without bleeding

== ENCOUNTER 2018-08-31 08:17 | Emergency (ER) | payer BC ==
[~2018-08-31] VITALS: Ht 172.7 cm; Wt 90.9 kg
[~2018-08-31 08:17] MED LIST changes: -LIDOCAINE 2% INJ 100 MG/5 ML SDV (FOR ANES.) As Ordered ONE; -NS 1,000 ML IV ONE; -PROPOFOL 200 MG/20 ML VIAL As Ordered ONE
[2018-08-31] MEDS ORDERED: LIDOCAINE 1% MDV 20ML VIAL IM ONE (09:15)
[2018-08-31] MEDS ORDERED: KETOROLAC 30 MG/ML VIAL (J1885) IV ONE (09:15)
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
[2018-08-31] MEDS ORDERED: LIDOCAINE W/EPINEPHRINE 1% 20ML VIAL SC ONE (12:30)
[2018-08-31] MEDS: LIDOCAINE 1% MDV 20ML VIAL SC ONE ×2 (12:30→13:00)
[2018-08-31] MEDS ORDERED: CLINDAMYCIN 150 MG CAP PO ONE (12:30)
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
[2018-08-31] MEDS ORDERED: CLIN150C14 PO (14:10)
[2018-08-31 14:15] VITALS: BP 157/104
--- NOTE | 2018-08-31 20:15 | RO ---
DATE OF PROCEDURE: 08/31/2018 The consultation is on the chart. This is a procedure note only. PREPROCEDURE DIAGNOSIS:Upper and lower lip laceration POSTPROCEDURE DIAGNOSIS: same PHYSICIAN PERFORMING PROCEDURE: Bridget Hatfield DO ANESTHESIA: Local INDICATIONS: The patient is seen and examined in the emergency room with full thickness laceration of the upper and lower lips, and repair of laceration was accomplished in the emergency room. Informed consent was obtained before the procedure is conducted from the patient. All the risks, benefits and alternatives were discussed with the patient. He is ready to proceed. DESCRIPTION OF PROCEDURE: He was given Clindamycin for antibiotics. He was prepped and draped in the usual sterile fashion. 1% Lidocaine with epinephrine was infiltrated in the area. Mental block was given for the lower lip, and for upper lip regional block was given. After the anesthesia started to take, we irrigated both wounds with a copious amount of normal saline solution. Attention was turned to the lower lip, as I described is a complete laceration all the way through the lip with the muscle showing. There is no active bleeding. I started repair with aligning the chad border with #5-0 Monocryl sutures and the muscle was reconnected using four plain gut sutures, and then the rest of the laceration was closed in layers with #4-0 plain gut sutures and #5-0 Monocryl, especially on the anterior part and then on the posterior part with 4-0 plain gut suture. We then turned out attention to the upper lip, which was also irrigated, and then the laceration went all the way through with the muscle layer, also the anterior portion of the laceration is more macerated, also including the chad border. I started the procedure with realigning the chad border first with #5-0 Monocryl sutures, and the muscle layer was reapproximated with #4-0 Plain gut suture, and then the laceration was closed from inside out with #4-0 plain sutures and anteriorly with #5-0 Monocryl sutures. There was also an additional laceration on the upper lip, which was not through and through, but it is to the muscle layer on the mucus portion of the lip, about 2 cm, and it was closed with #4-0 plain sutures. Total length of the lacerations were about 8 cm in total. Bacitracin was applied. Good symmetry achieved. The patient had full sensation and motor preserved. He tolerated the procedure well. THI
== END 2018-08-31 14:31 | disposition home or self-care (01) ==
LOC: M ED 08:17
DX: S01.511A Laceration without foreign body of lip, initial encounter (principal); S02.5XXA Fracture of tooth (traumatic), initial encounter for closed fracture; Y04.0XXA Assault by unarmed brawl or fight, initial encounter
CPT/HCPCS: 70486; 96372; 96374; 99284; J1885

== ENCOUNTER 2018-10-28 09:53 | Emergency (ER) | payer BC ==
[~2018-10-28] VITALS: Ht 172.7 cm; Wt 85.5 kg
[~2018-10-28 09:53] MED LIST changes: +CLIN150C14 PO
[2018-10-28 10:23] LABS: BASO # 0.1 10^3/uL (0.0-0.2); BASO % 1.4 % (0.0-1.0); EOS # 0.3 10^3/uL (0.0-0.50); EOS % 4.4 % (0.0-3.0); HEMATOCRIT 45.3 % (42.0-52.0); HEMOGLOBIN 15.1 g/dl (13.5-17.5); LYMPH # 1.8 10^3/uL (1.5-4.5); LYMPH % 31.1 % (24.0-44.0); MEAN CORPUSCULAR HEMOGLOBIN 28.2 pg (27.0-33.0); MEAN CORPUSCULAR HGB CONC 33.3 g/dl (32.0-36.5); MEAN CORPUSCULAR VOLUME 84.5 fl (80.0-96.0); MONO # 0.6 10^3/uL (0.0-0.8); MONO % 10.1 % (0.0-5.0); NEUTROPHILS % 52.6 % (36.0-66.0); PLATELET COUNT, AUTOMATED 218 10^3/uL (150-450); RED BLOOD COUNT 5.36 10^6/uL (4.30-6.10); WHITE BLOOD COUNT 5.6 10^3/uL (4.0-10.0)
--- NOTE | 2018-10-28 11:02 | REP ---
Portable chest, single AP sitting view, 10:15 a.m.: Comparison is 03/07/2009. The lung macias are clear. The cardiac size is normal. The rupert, mediastinum, and skeletal structures are unremarkable. Impression: Negative portable chest. There is no interval change. Electronically Signed by Lizandro Bellamy MD 10/28/2018 10:53 A
[2018-10-28 11:03] LABS: INR 0.95; PROTHROMBIN TIME 12.8 SECONDS (12.1-14.4)
[2018-10-28 11:04] LABS: ALBUMIN 3.9 GM/DL (3.2-5.2); ALT/SGPT 30 U/L (12-78); BILIRUBIN,DIRECT 0.3 MG/DL (0.0-0.2); BILIRUBIN,TOTAL 1.7 MG/DL (0.2-1.0); BLOOD UREA NITROGEN 20 MG/DL (7-18); CALCIUM LEVEL 8.4 MG/DL (8.5-10.1); CARBON DIOXIDE LEVEL 28 MEQ/L (21-32); CHLORIDE LEVEL 109 MEQ/L (98-107); CK-MB VALUE MASS < 1.0 NG/ML (<3.6); CPK CREATINE PHOSPHOKINASE 98 U/L (39-308); CREATININE FOR GFR 0.82 MG/DL (0.70-1.30); GLOMERULAR FILTRATION RATE > 60.0 (>56); GLUCOSE, FASTING 90 MG/DL (70-100); LIPASE 264 U/L (73-393); MB/CK RELATIVE INDEX 1.02 (< OR =4); PARTIAL THROMBOPLASTIN TIME 26.7 SECONDS (25.4-37.6); SODIUM LEVEL 142 MEQ/L (136-145); TOTAL PROTEIN 6.6 GM/DL (6.4-8.2); TROPONIN I < 0.02 NG/ML (< 0.10)
[2018-10-28 13:19] LABS: CK-MB VALUE MASS < 1.0 NG/ML (<3.6); CPK CREATINE PHOSPHOKINASE 81 U/L (39-308); MB/CK RELATIVE INDEX 1.23 (< OR =4); TROPONIN I < 0.02 NG/ML (< 0.10)
[2018-10-28 16:11] LABS: CK-MB VALUE MASS < 1.0 NG/ML (<3.6); CPK CREATINE PHOSPHOKINASE 84 U/L (39-308); MB/CK RELATIVE INDEX 1.19 (< OR =4); TROPONIN I < 0.02 NG/ML (< 0.10)
[2018-10-28] MEDS ORDERED: ASPI-222 PO (17:29)
[2018-10-28] MEDS ORDERED: NITR4TASL SL (17:29)
[2018-10-28 17:30] VITALS: BP 144/97
--- NOTE | 2018-10-28 20:55 | ECGEPIP ---
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
--- NOTE | 2018-10-28 21:02 | ECGEPIP ---
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
--- NOTE | 2018-10-28 21:04 | ECGEPIP ---
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
== END 2018-10-28 17:40 | disposition home or self-care (01) ==
LOC: EDBD 09:53 → M ED 09:53
DX: I20.9 Angina pectoris, unspecified (principal); Z79.82 Long term (current) use of aspirin

== ENCOUNTER → 2020-08-27 | Outpatient (CLI) | payer SELFPAY ==
[~2020-08-27] MED LIST changes: +ASPI-527 PO; +NITR4TASL SL
== END ==
LOC: M LABSMTC 11:10
PROVIDERS: ATTEND Pediatrics
DX: Z20.822 Contact with and (suspected) exposure to COVID-19 (principal)

== ENCOUNTER 2021-05-08 16:02 | Emergency (ER) | payer BC, SELFPAY ==
[~2021-05-08] VITALS: Ht 172.7 cm; Wt 88.6 kg
[~2021-05-08 16:02] MED LIST changes: -CLIN150C14 PO; +CLIN150C17 PO
[2021-05-08] MEDS ORDERED: KETOROLAC 30 MG/ML 1ML VIAL IV ONE ×2 (16:40→17:05)
[2021-05-08] MEDS ORDERED: ONDANSETRON 4MG/2ML VIAL IV ONE ×2 (16:40→19:05)
[2021-05-08 16:43] LABS: BASO # 0.1 10^3/uL (0.0-0.2); BASO % 0.8 % (0.0-1.0); EOS # 0.4 10^3/uL (0.0-0.5); EOS % 3.8 % (0.0-3.0); HEMATOCRIT 49.9 % (42.0-52.0); HEMOGLOBIN 16.3 g/dl (13.5-17.5); LYMPH # 2.5 10^3/uL (1.5-5.0); LYMPH % 26.9 % (24.0-44.0); MEAN CORPUSCULAR HEMOGLOBIN 28.1 pg (27.0-33.0); MEAN CORPUSCULAR HGB CONC 32.7 g/dl (32.0-36.5); MEAN CORPUSCULAR VOLUME 85.9 fl (80.0-96.0); MONO # 0.7 10^3/uL (0.0-0.8); NEUTROPHILS # 5.7 10^3/uL (1.5-8.5); NEUTROPHILS % 61.1 % (36.0-66.0); PLATELET COUNT, AUTOMATED 213 10^3/uL (150-450); RED BLOOD COUNT 5.81 10^6/uL (4.30-6.10); WHITE BLOOD COUNT 9.3 10^3/uL (4.0-10.0)
[2021-05-08 17:07] LABS: ALBUMIN 4.4 GM/DL (3.2-5.2); BILIRUBIN,DIRECT 0.2 MG/DL (0.0-0.2); BILIRUBIN,TOTAL 0.7 MG/DL (0.2-1.0); TOTAL PROTEIN 7.8 GM/DL (6.4-8.2)
[2021-05-08] MEDS ORDERED: MORPHINE 4 MG/ML 1ML VIAL/SYRINGE (J2270) IV ONE (17:45)
[2021-05-08] MEDS ORDERED: TAMSULOSIN 0.4 MG CAP PO ONE (17:50)
--- NOTE | 2021-05-08 18:10 | REPVR ---
PROCEDURE INFORMATION: Exam: CT Abdomen And Pelvis Without Contrast Exam date and time: 05/08/2021 5:24 PM Age: 55 years old Clinical indication: Abdominal pain; Flank; Right; Additional info: Right sided flank pain TECHNIQUE: Imaging protocol: Computed tomography of the abdomen and pelvis without contrast. Radiation optimization: All CT scans at this facility use at least one of these dose optimization techniques: automated exposure control; mA and/or kV adjustment per patient size (includes targeted exams where dose is matched to clinical indication); or iterative reconstruction. COMPARISON: CT ABD PELVIS W/O CONTRAST 09/27/2016 11:55 AM FINDINGS: Liver: Normal. No mass. Gallbladder and bile ducts: Normal. No calcified stones. No ductal dilation. Pancreas: Normal. No ductal dilation. Spleen: Normal. No splenomegaly. Adrenal glands: Normal. No mass. Kidneys and ureters: There is a 4 mm. obstructive ureteral calculus located distal right ureter resulting in [id number] mild proximal hydroureteronephrosis. There is bowel periureteral and perinephric stranding. No urinoma demonstrated. Multiple bilateral nonobstructive renal calculi demonstrated. Stomach and bowel: Mild diverticulosis is present in the distal colon. No diverticulitis. Appendix: No evidence of appendicitis. Intraperitoneal space: Unremarkable. No free air. No significant fluid collection. Vasculature: Unremarkable. No abdominal aortic aneurysm. Lymph nodes: Unremarkable. No enlarged lymph nodes. Urinary bladder: Unremarkable as visualized. Reproductive: The prostate gland demonstrates mild hyperplasia. Bones/joints: Mild central spinal stenosis L3-L4 and [id number] central spinal stenosis L4-L5. Soft tissues: There is a small umbilical hernia. There is no evidence of incarceration. Varicocele on the left. IMPRESSION: 1. 4 mm obstructive distal right ureteral calculus as described above. 2. Multiple bilateral nonobstructive renal calculi demonstrated. 3. Mild prostatic hyperplasia. 4. Mild diverticulosis is present in the distal colon. No diverticulitis. Electronically signed by: Ifeanyi Sanchez On 05/08/2021 18:09:49 PM
[2021-05-08] MEDS ORDERED: HYDROMORPHONE HCL 0.5 MG/ 0.5 ML SYRINGE (J1170 PER 1) IV PRN (19:05)
--- NOTE | 2021-05-08 20:22 | ECGEPIP ---
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
[2021-05-08] MEDS ORDERED: PERC5TAB12 PO (21:09)
[2021-05-08] MEDS ORDERED: FLOM0.4C39 PO (21:09)
[2021-05-08] MEDS ORDERED: OXYCODONE/APAP 5MG/325MG(BULK FOR ED) 1 TABLET PO ONE (21:10)
[2021-05-08 21:15] VITALS: BP 122/77
[2021-05-09] MEDS ORDERED: ONDA4TAB6 PO (19:09)
== END 2021-05-08 21:25 | disposition home or self-care (01) ==
LOC: M ED 16:02
DX: N13.2 Hydronephrosis with renal and ureteral calculous obstruction (principal); N40.0 Benign prostatic hyperplasia without lower urinary tract symptoms; K57.30 Diverticulosis of large intestine without perforation or abscess without bleeding; R11.2 Nausea with vomiting, unspecified
CPT/HCPCS: 74176; 80047; 80076; 81001; 83690; 85025; 93005; 96374; 96375; 96376; 99284; J1170; J1885; J2270; J2405

== ENCOUNTER 2021-05-09 12:28 | Emergency (ER) | payer SELFPAY ==
[~2021-05-09] VITALS: Ht 172.7 cm; Wt 88.5 kg
[~2021-05-09 12:28] MED LIST changes: +FLOM0.4C39 PO; +PERC5TAB12 PO
[2021-05-09] MEDS ORDERED: PROMETHAZINE INJ 25 MG/ML VIAL (J2550) IV ONE (13:40)
[2021-05-09] MEDS ORDERED: NS 1,000 ML IV ONE ×2 (13:40→18:15)
[2021-05-09 14:19] LABS: BASO # 0.1 10^3/uL (0.0-0.2); BASO % 0.3 % (0.0-1.0); EOS % 0.1 % (0.0-3.0); HEMATOCRIT 50.7 % (42.0-52.0); LYMPH # 1.1 10^3/uL (1.5-5.0); LYMPH % 6.5 % (24.0-44.0); MEAN CORPUSCULAR HEMOGLOBIN 28.6 pg (27.0-33.0); MEAN CORPUSCULAR HGB CONC 33.5 g/dl (32.0-36.5); MEAN CORPUSCULAR VOLUME 85.4 fl (80.0-96.0); MONO # 1.1 10^3/uL (0.0-0.8); MONO % 6.1 % (2.0-8.0); NEUTROPHILS # 15.3 10^3/uL (1.5-8.5); NEUTROPHILS % 86.5 % (36.0-66.0); PLATELET COUNT, AUTOMATED 211 10^3/uL (150-450); RED BLOOD COUNT 5.94 10^6/uL (4.30-6.10); WHITE BLOOD COUNT 17.6 10^3/uL (4.0-10.0)
[2021-05-09] MEDS ORDERED: KETOROLAC 30 MG/ML 1ML VIAL IV ONE (14:30)
[2021-05-09] MEDS ORDERED: HALOPERIDOL 5MG/ML VIAL (J1630 PER 1) IV ONE (14:30)
[2021-05-09] MEDS ORDERED: MORPHINE 4 MG/ML 1ML VIAL/SYRINGE (J2270) IV PRN (16:15)
[2021-05-09] MEDS ORDERED: ONDANSETRON 4MG/2ML VIAL IV ONE (16:20)
[2021-05-09] MEDS ORDERED: HOME MED LIST COMPLETE! XX SCH (17:00)
[2021-05-09 17:16] LABS: APPEARANCE, URINE CLEAR (CLEAR); BACTERIA, URINE AUTO NEGATIVE (NEGATIVE); BILIRUBIN, URINE AUTO NEGATIVE (NEGATIVE); BLOOD, URINE BLOOD 1+ (NEGATIVE); COLOR, URINE YELLOW (YELLOW); GLUCOSE, URINE (UA) AUTO NEGATIVE (NEGATIVE); KETONE, URINE AUTO 2+ mg/dL (NEGATIVE); LEUKOCYTE ESTERASE, URINE AUTO NEGATIVE (NEGATIVE); MUCUS, URINE SMALL (NEGATIVE); NITRITE, URINE AUTO NEGATIVE (NEGATIVE); PROTEIN, URINE AUTO 1+ mg/dL (NEGATIVE); RBC, URINE AUTO 19 /HPF (0-3); SPECIFIC GRAVITY URINE AUTO 1.024 (1.002-1.035); SQUAMOUS EPITHELIAL CELL UR AU 0 /HPF (0-6); UROBILINOGEN, URINE AUTO 0.2 mg/dL (0.0-2.0); WBC, URINE AUTO 1 /HPF (0-3)
[2021-05-09] MEDS ORDERED: ONDA4TAB6 PO (19:09)
[2021-05-09 19:46] VITALS: BP 131/79
--- NOTE | 2021-05-09 22:36 | SMCUROLCON ---
Urology Consultation General Date of Consultation 05/09/21 Reason For Consultation This patient is seen for Possible Kidney Stone. History of Present Illness Patient 55-year-old male with a history of kidney stones he stated he has passed more than 30 stones in the past. He presented to emergency room yesterday with right-sided flank pain with nausea and vomiting. Patient was given pain control received a CT scan was demonstrated a right UVJ stone 2 mm in size BUN/creatinine was 19 and 1.1 he became comfortable and was discharged from the emergency. He presented today with poor pain control white count of 17.6 without fever chills nausea vomiting. But he was in his acute distress. Patient was given IV fluids of a liter x2 Toradol and morphine. His pain control got better. Medications Current Medications Current Medications Medications (Trade) Dose Ordered Sig/Edenilson Route PRN Reason Start Time Stop Time Status Last Admin Dose Admin Home Med (Home Med List Complete!) ASDIRECTED XX 05/09/21 17:00 05/09/21 16:58 DC Morphine Sulfate (Morphine Sulfate Inj) 4 mg Q30M PRN IV SEVERE PAIN (PS 8-10) 05/09/21 16:15 05/09/21 19:50 DC 05/09/21 17:03 Allergies Allergies: Coded Allergies: No Known Allergies (Verified , 07/25/04) Review of Systems General: Denies: ROS Unobtainable, Chills, Night Sweats, Fatigue, Malaise, Normal Appetite, Other Symptoms ENT: Denies: Head Aches, Ear Pain, Dysphagia, Sinus Congestion, Post Nasal Drip, Sore Throat, Epistaxis, Other Symptoms Cardiovascular: Denies Chest Pain, Denies Palpitations, Denies Orthopnea, Denies Paroxysmal Noc. Dyspnea, Denies Edema, Denies Lt Headedness, Denies Other Symptoms Gastrointestinal: Denies: Nausea, Vomiting, Abdominal Pain, Diarrhea, Constipation, Melena, Hematochezia, Other Symptoms Genitourinary: Denies: Dysuria, Frequency, Incontinence, Hematuria, Retention, Other Symptoms Physical Examination General Exam: Alert, Cooperative, Mild Distress Neck Exam: Supple Heart Exam: Rate Normal Abdomen Exam: Normal Bowel Sounds, BS Hyperactive, BS Hypoactive, Soft, Hernia; No: Tenderness, Hepatospenomegaly, Mass, Other Vital Signs/I&O Vital Signs Date Time Temp Pulse Resp B/P (MAP) Pulse Ox O2 Delivery O2 Flow Rate FiO2 05/09/21 19:46 98.0 76 18 131/79 (96) 97 Room Air Laboratory Data 24H Labs Laboratory Tests 2 05/09/21 13:56: Urine Color YELLOW, Urine Appearance CLEAR, Urine pH 6.0, Urine Specific [place] 1.024, Urine Protein 1+H, Urine Glucose (Auto)(UA) NEGATIVE, Urine Ketones (Auto) 2+H, Urine Blood 1+H, Urine Nitrite NEGATIVE, Urine Bilirubin NEGATIVE, Urine Urobilinogen 0.2, Urine Leukocyte Esterase (Auto) NEGATIVE, Urine WBC (Auto) 1, Urine RBC (Auto) 19H, Urine Hyaline Casts (Auto) 0, Urine Bacteria (Auto) NEGATIVE, Urine Squamous Epithelial Cells 0, Urine Mucus (Auto) SMALL, Urine Sperm (Auto) 05/09/21 13:57: Immature Granulocyte % (Auto) 0.5, Neutrophils (%) (Auto) 86.5H, Lymphocytes (%) (Auto) 6.5L, Monocytes (%) (Auto) 6.1, Eosinophils (%) (Auto) 0.1, Basophils (%) (Auto) 0.3, Neutrophils # (Auto) 15.3H, Lymphocytes # (Auto) 1.1L, Monocytes # (Auto) 1.1H, Eosinophils # (Auto) 0.0, Basophils # (Auto) 0.1, Nucleated Red Blood Cells % (auto) 0.0 05/09/21 14:02: POC Glucose (Misc Panel) 146H, POC Sodium (Misc Panel) 143, POC Potassium (Misc Panel) 3.2L, POC Chloride (Misc Panel) 105, POC Total CO2 (Misc Panel) 21.0L, POC Blood Urea Nitrogen (Misc Panel 19, POC Ionized Calcium (Misc Panel) 4.7, POC Creatinine (Misc Panel) 1.1, POC Hematocrit (Misc Panel) 52.0H 05/09/21 17:42: Coronavirus (COVID-19)(PCR) NEGATIVE CBC/BMP Laboratory Tests 05/09/21 13:57 Assessment Patient with 2 mm distal UVJ obstructing stone on the right side. Patient pain control is much better compared to when he arrived to the emergency room. Patient feels as though he can pass the stone without intervention. Plan Options were discussed with the patient including stent placement tonight, monitoring in the hospital or discharged home. Patient opted to be discharged home and follow-up in the clinic. Time Spent on Consult: Time Spent / Consult (Minutes): 25 LARISSA ANN MD May 09, 2021 22:36
== END 2021-05-09 19:49 | disposition home or self-care (01) ==
LOC: M ED 12:28
DX: N13.2 Hydronephrosis with renal and ureteral calculous obstruction (principal); R11.10 Vomiting, unspecified; F12.10 Cannabis abuse, uncomplicated
CPT/HCPCS: 80047; 81001; 85025; 96361; 96374; 96375; 99284; J1630; J1885; J2270; J2405; U0002

== ENCOUNTER 2021-05-11 23:56 | Inpatient (IN) | payer SELFPAY ==
[~2021-05-11] VITALS: Ht 167.6 cm; Wt 99.0 kg
[~2021-05-11 23:56] MED LIST changes: +ONDA4TAB6 PO
[2021-05-12] MEDS ORDERED: ONDANSETRON 4MG/2ML VIAL IV ONE (00:20)
[2021-05-12] MEDS ORDERED: MORPHINE 4 MG/ML 1ML VIAL/SYRINGE (J2270) IV PRN (00:20)
[2021-05-12] MEDS ORDERED: ISOVUE-370 76% 100ML VIAL As Ordered ONE (00:35)
[2021-05-12 00:59] LABS: BASO # 0.1 10^3/uL (0.0-0.2); BASO % 0.4 % (0.0-1.0); HEMATOCRIT 44.7 % (42.0-52.0); LYMPH # 0.7 10^3/uL (1.5-5.0); LYMPH % 5.8 % (24.0-44.0); MEAN CORPUSCULAR HEMOGLOBIN 28.1 pg (27.0-33.0); MEAN CORPUSCULAR HGB CONC 33.6 g/dl (32.0-36.5); MEAN CORPUSCULAR VOLUME 83.9 fl (80.0-96.0); MONO # 0.7 10^3/uL (0.0-0.8); MONO % 5.3 % (2.0-8.0); NEUTROPHILS # 11.3 10^3/uL (1.5-8.5); NEUTROPHILS % 88.2 % (36.0-66.0); PLATELET COUNT, AUTOMATED 203 10^3/uL (150-450); RED BLOOD COUNT 5.33 10^6/uL (4.30-6.10); WHITE BLOOD COUNT 12.8 10^3/uL (4.0-10.0)
[2021-05-12] MEDS: HYDROMORPHONE HCL 0.5 MG/ 0.5 ML SYRINGE (J1170 PER 1) IV PRN ×2 (01:01→01:43)
[2021-05-12 01:02] LABS: ALBUMIN 4.2 GM/DL (3.2-5.2); ALT/SGPT 27 U/L (12-78); BILIRUBIN,DIRECT < 0.1 MG/DL (0.0-0.2); BILIRUBIN,TOTAL 1.3 MG/DL (0.2-1.0); LIPASE 50 U/L (73-393); TOTAL PROTEIN 7.6 GM/DL (6.4-8.2)
--- NOTE | 2021-05-12 01:27 | REPVR ---
PROCEDURE INFORMATION: Exam: CT Abdomen And Pelvis With Contrast Exam date and time: 05/12/2021 12:55 AM Age: 55 years old Clinical indication: Abdominal pain; Epigastric pain TECHNIQUE: Imaging protocol: Computed tomography of the abdomen and pelvis with contrast. Radiation optimization: All CT scans at this facility use at least one of these dose optimization techniques: automated exposure control; mA and/or kV adjustment per patient size (includes targeted exams where dose is matched to clinical indication); or iterative reconstruction. Contrast material: ISOVUE 370; Contrast volume: 100 ml; Contrast route: INTRAVENOUS (IV); COMPARISON: CT ABD PELVIS W/O CONTRAST 05/08/2021 5:22 PM FINDINGS: Lungs: There is mild dependent atelectasis in both lower lobes. The lungs were not fully imaged. Heart: No cardiomegaly or pericardial effusion. Liver: Unremarkable. No liver lesion is identified. The contour of the liver is smooth. No hepatomegaly is noted. Gallbladder and bile ducts: No calcified gallstones are noted. No gallbladder wall thickening, pericholecystic fluid, or pericholecystic inflammatory changes are identified. No dilation of the bile ducts is noted. No calcified stones are seen in the common bile duct. Pancreas: Normal. No dilation of the main pancreatic duct is noted. Spleen: Normal. No splenomegaly is noted. Adrenal glands: Normal. No adrenal mass is noted. Kidneys and ureters: There is nonobstructive bilateral nephrolithiasis. No calculi are noted in the ureters. There is no hydronephrosis or hydroureter. No renal lesion is identified. There are no wedge-shaped areas of low attenuation in the kidneys to suggest pyelonephritis. There is no renal abscess or perinephric fluid collection. Stomach and bowel: There is ingested material in the stomach. The small bowel is unremarkable. There is colonic diverticulosis without evidence for diverticulitis. There is no evidence for a bowel obstruction, perforated viscus, pneumatosis intestinalis, intussusception, or volvulus. The ascending colon, transverse colon, descending colon, and rectosigmoid are decompressed, limiting their optimal evaluation. There is no pericolonic inflammatory fat stranding. Appendix: Normal. There is no evidence for appendicitis. 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 No free air. No ascites. No abscess. Retroperitoneal space: Unremarkable. Vasculature: The abdominal aorta is patent, normal in caliber, and there is no dissection. The iliac arteries, common femoral arteries, renal arteries, celiac artery, superior mesenteric artery, and inferior mesenteric artery are patent. There are mild atherosclerotic calcifications. The portal veins, splenic vein, superior mesenteric vein, inferior mesenteric vein, and renal veins are patent. Lymph nodes: No enlarged lymph nodes. Urinary bladder: The partially distended urinary bladder is unremarkable. No stones or masses are seen in the bladder. Reproductive: The prostate gland is enlarged and measures 3.6 cm x 5 cm x 4.8 cm and the volume of the prostate is increased and measures 45.2 mL. There are calcifications in the prostate. The seminal vesicles are unremarkable. There are vas deferens calcifications. Bones/joints: There is no fracture or dislocation. No suspicious osteolytic or osteoblastic lesion. There are degenerative changes involving the lumbar spine. There is mild osteoarthritis of both hips. Soft tissues: There is a small fat containing umbilical hernia and a small fat containing indirect left inguinal hernia, which are similar in appearance compared to the prior CT abdomen and pelvis on 05/08/2021. 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 IMPRESSION: 1. 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 2. Nonobstructive bilateral nephrolithiasis. No calculi in the ureters or urinary bladder. No hydronephrosis or hydroureter. 3. Colonic diverticulosis without evidence for diverticulitis. 4. Enlarged prostate. 5. Small fat containing indirect left inguinal hernia and a small fat containing umbilical hernia, which are similar in appearance compared to the CT abdomen and pelvis on 05/08/2021. Electronically signed by: Richie Treadwell On 05/12/2021 01:27:05 AM
[2021-05-12] MEDS ORDERED: METOCLOPRAMIDE INJ 10MG/2ML VIAL (J2765 PER 1) IV ONE (02:00)
[2021-05-12] MEDS ORDERED: NS 1,000 ML IV ONE (02:25)
[2021-05-12] MEDS ORDERED: KETOROLAC 30 MG/ML 1ML VIAL IV ONE (02:50)
[2021-05-12 03:18] LABS: RSV AMPLIFICATION NEGATIVE (NEGATIVE)
[2021-05-12] MEDS ORDERED: MORPHINE 2 MG/ML 1ML VIAL (J2270) IV PRN ×2 (03:40→04:50)
[2021-05-12] MEDS ORDERED: ACETAMINOPHEN TAB 650MG DOSE (2X325MG) PO PRN (03:40)
[2021-05-12] MEDS ORDERED: HOME MED LIST COMPLETE! XX SCH (03:50)
[2021-05-12] MEDS ORDERED: ONDANSETRON 4MG/2ML VIAL IV PRN (03:55)
[2021-05-12] MEDS: NS 1,000 ML IV SCH ×2 (04:00→16:38)
--- NOTE | 2021-05-12 04:43 | HPEPDOC ---
[facility] Medical History & Physical Date of Admission May 12, 2021 Date of Service: May 12, 2021 Attending Physician: MARCIN LEÓN MD History and Physical CC: abdominal pain HISTORY OF PRESENT ILLNESS: This is a 55-year-old male who presents to [facility] ER complaining of intractable abdominal pain. Patient states that the pain started yesterday evening whenever after he ate spaghetti with red sauce. He states that he has never had this type of pain. He reports localized pain in the mid epigastric region and described it as a stabbing sharp pain. The pain has been constant since and he has had associated nausea and vomiting. He states he has vomited most of the spaghetti with the red sauce out and is not sure if there is any hints of blood. His last bowel movement was 3 days ago but he denies blood in stool. He also reports on and off chills. Patient denies any chest pain or shortness of breath. Patient also denies any travel out of the count includes the [facility] or out of the [place]; also denies having been in contact with anyone sick. REVIEW OF SYSTEMS: General: Diaphoretic with on and off chills. Denies any unintentional weight loss or loss of appetite. HEENT: Denies changes in vision including blurry vision or double vision, or hearing loss nasal congestion or sore throat Heart: Denies chest pain or chest pressure or discomfort, or palpitations, or lower extremity edema Pulm: Denies cough or sputum production or shortness of breath GI: Nausea, vomiting, unrelenting midepigastric abdominal pain that sharp and stabbing in nature. Denies any blood in stool Psych: Denies sadness or loss of interest in doing things, no thoughts of self- harm or suicidal ideation PAST MEDICAL/SURGICAL HISTORY: Kidney stones with lithotripsy SOCIAL HISTORY: Never smoker. Occasional marijuana use. Denies EtOH or illicit drug use. Patient lives at home with and kids. 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 FAMILY HISTORY: Mother stage IV bile duct cancer Father . Hypertension PHYSICAL EXAM: VS: See below GENERAL: Distressed and diaphoretic looking gentleman sitting up in bed without any acute respiratory distress. AAOx3 NEURO: No focal neurological deficits HEENT: Head is normocephalic and atraumatic. Extraocular muscles are intact. Pupils are equal, round, and reactive to light and accommodation. Nares appears normal. Moist mucous membranes. PULM: Clear to auscultation bilaterally. No wheezing, rhonchi or rales appreciated.. CARDIO: Normal S1, S2. no significant murmurs, gallops, rubs or clicks. No signs of peripheral edema ABDOMEN: Soft non-distended but tender on palpation in the mid epigastric region, no significant organomegaly appreciated. There is no guarding or signs of peritonitis. EXTREMITIES: No cyanosis, clubbing, rash, lesions. 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 Nonobstructive bilateral nephrolithiasis no calculi in the ureters or urinary bladder. No hydronephrosis or hydroureter. Colonic diverticulosis without evidence of diverticulitis. Enlarged prostate. Small fat containing indirect left inguinal hernia and a small fat-containing umbilical hernia, which are similar in appearance compared to previous CT ASSESSMENT AND PLAN: This is a 56-year-old gentleman who presents to the ER chief complaint of intractable abdominal pain after eating a meal. The pain has been constant and localized in the mid epigastric region with associated nausea and vomiting. In the ER CT scan of the abdomen pelvis with contrast was not too impressive. Patient is in 10 out of 10 pain and is diaphoretic in acute distress and elevated SBP of 190s secondary to pain. He received morphine IV as well as Dilaudid as well as a dose of Toradol however patient is still in quite a bit of pain. Patient was asked by the hospitalist team to be admitted for further management of his care pain control. Intractable abdominal pain General surgery was called and recommended NG tube for tonight and will see in the a.m. for a scope to rule out PUD. We will cover with empiric antibiotics Cipro Flagyl this patient does experience on and off chills along with leukocytosis. Will obtain 2 sets of blood cultures. Pain with morphine, Dilaudid and Tylenol and Zofran for nausea; would avoid NS AIDs at this time. We will start him on Protonix and sucralfate. Order for a H. pylori fecal antigen test. We will obtain a hepatitis panel as well as a liver profile We will continue to monitor daily CBC with differential and BMP We will start him on fluids maintenance 80 cc/h EKG performed in the ER shows normal sinus rhythm no ST-T abnormalities seen. We will order cardiac marker panel to fully rule out cardiac cause of his pain N.p.o DVT prophylaxis Heparin CODE STATUS full Disposition pending clinical improvement Vital Signs Vital Signs Date Time Temp Pulse Resp B/P (MAP) Pulse Ox O2 Delivery O2 Flow Rate FiO2 05/12/21 04:00 86 20 165/91 (115) 99 Nasal Cannula 2.0 05/11/21 23:56 97.5 Laboratory Data Labs 24H Laboratory Tests 2 05/12/21 00:19: Immature Granulocyte % (Auto) 0.3, Neutrophils (%) (Auto) 88.2H, Lymphocytes (%) (Auto) 5.8L, Monocytes (%) (Auto) 5.3, Eosinophils (%) (Auto) 0.0, Basophils (%) (Auto) 0.4, Neutrophils # (Auto) 11.3H, Lymphocytes # (Auto) 0.7L, Monocytes # (Auto) 0.7, Eosinophils # (Auto) 0.0, Basophils # (Auto) 0.1, Nucleated Red Blood Cells % (auto) 0.0, Lactic Acid Level 3.2*H, Total Bilirubin 1.3H, Direct Bilirubin < 0.1, Aspartate Amino Transf (AST/SGOT) 43H, Alanine Aminotransferase (ALT/SGPT) 27, Alkaline Phosphatase 85, Total Protein 7.6, Albumin 4.2, Albumin/Globulin Ratio 1.2, Lipase 50L 05/12/21 00:21: POC Glucose (Misc Panel) 175H, POC Sodium (Misc Panel) 141, POC Potassium (Misc Panel) 3.6, POC Chloride (Misc Panel) 105, POC Total CO2 (Misc Panel) 22.0L, POC Blood Urea Nitrogen (Misc Panel 18, POC Ionized Calcium (Misc Panel) 4.5, POC Creatinine (Misc Panel) 0.6, POC Hematocrit (Misc Panel) 46.0 05/12/21 02:28: Coronavirus (COVID-19)(PCR) NEGATIVE, Influenza Type A (RT-PCR) NEGATIVE, Influenza Type B (RT-PCR) NEGATIVE, Respiratory Syncytial Virus (PCR) NEGATIVE 05/12/21 04:23: CBC/BMP Laboratory Tests 05/12/21 00:19 Microbiology Microbiology 05/12/21 Blood Culture, Received Pending Home Medications No Active Prescriptions or Reported Meds Allergies Coded Allergies: No Known Allergies (Verified , 07/25/04) A-FIB/CHADSVASC A-FIB History Current/History of A-Fib/PAF?: No Current PO Anticoag Therapy: No GME ATTESTATION GME ATTESTATION My faculty preceptor for this patient encounter was physically present during the encounter and was fully available. All aspects of the patient interview, examination, medical decision making process, and medical care plan development were reviewed and approved by the faculty preceptor. The faculty preceptor is aware and concurs with the plan as stated in the body of this note and will attest to such by his/her cosignature. ATTENDING NOTE IAndrei, have independently examined this patient and performed my own physical exam, as well as reviewed the documentation and edited where necessary. I have discussed in detail with the resident / student the findings and plan of treatment as documented by the resident / student and edited their note. I agree with their findings and treatment plan and have edited their documentation. I will continue to follow the patient during this hospital stay. Mariaelena Kemp DO May 12, 2021 04:43 MARCIN LEÓN MD May 13, 2021 06:37
[2021-05-12] MEDS ORDERED: HYDROmorphone 2 MG TAB PO PRN (04:50)
[2021-05-12 05:06] LABS: ALBUMIN 4.1 GM/DL (3.2-5.2); BILIRUBIN,DIRECT 0.2 MG/DL (0.0-0.2)
[2021-05-12 05:07] LABS: CK-MB VALUE MASS 1.6 NG/ML (<3.6); CPK CREATINE PHOSPHOKINASE 259 U/L (39-308); MB/CK RELATIVE INDEX 0.62 (< OR =4); TROPONIN I < 0.02 NG/ML (< 0.10)
[2021-05-12 05:23] VITALS: BP 134/88
[2021-05-12] MEDS: HEPARIN SOD (PORCINE) 5000UNITS/ML 1ML VIAL/SYRINGE SC SCH ×3 (05:31→21:13)
[2021-05-12] MEDS: CIPROFLOXACIN 400 MG in IV 1 EA IV SCH ×2 (05:31→16:37)
[2021-05-12] MEDS: metroNIDAZOLE 500 MG in IV 1 EA IV SCH ×3 (06:45→21:13)
[2021-05-12] MEDS: SUCRALFATE 1 GM TAB PO SCH ×4 (07:30→21:12)
[2021-05-12 07:47] LABS: BASO % 0.2 % (0.0-1.0); HEMATOCRIT 42.5 % (42.0-52.0); HEMOGLOBIN 14.1 g/dl (13.5-17.5); LYMPH # 0.8 10^3/uL (1.5-5.0); LYMPH % 8.9 % (24.0-44.0); MEAN CORPUSCULAR HEMOGLOBIN 28.4 pg (27.0-33.0); MEAN CORPUSCULAR HGB CONC 33.2 g/dl (32.0-36.5); MEAN CORPUSCULAR VOLUME 85.7 fl (80.0-96.0); MONO # 0.6 10^3/uL (0.0-0.8); MONO % 6.4 % (2.0-8.0); NEUTROPHILS % 84.2 % (36.0-66.0); PLATELET COUNT, AUTOMATED 194 10^3/uL (150-450); RED BLOOD COUNT 4.96 10^6/uL (4.30-6.10); WHITE BLOOD COUNT 9.4 10^3/uL (4.0-10.0)
[2021-05-12 08:19] LABS: ALBUMIN 3.7 GM/DL (3.2-5.2); ALT/SGPT 22 U/L (12-78); BILIRUBIN,TOTAL 0.8 MG/DL (0.2-1.0); BLOOD UREA NITROGEN 13 MG/DL (7-18); CALCIUM LEVEL 8.7 MG/DL (8.5-10.1); CARBON DIOXIDE LEVEL 26 MEQ/L (21-32); CHLORIDE LEVEL 106 MEQ/L (98-107); CREATININE FOR GFR 0.76 MG/DL (0.70-1.30); GLOMERULAR FILTRATION RATE > 60.0 (>56); GLUCOSE, FASTING 124 MG/DL (70-100); MAGNESIUM LEVEL 1.9 MG/DL (1.8-2.4); POTASSIUM SERUM 4.2 MEQ/L (3.5-5.1); SODIUM LEVEL 139 MEQ/L (136-145); TOTAL PROTEIN 6.6 GM/DL (6.4-8.2)
[2021-05-12] MEDS ORDERED: SUCRALFATE 1 GM TAB PO SCH (09:00)
[2021-05-12] MEDS ORDERED: PANTOPRAZOLE 40MG VIAL (C9113 PER 1) IV SCH (09:00)
[2021-05-12] MEDS ORDERED: FLUBLOK(EGG FREE)(QUAD)INFLUENZA VACC 0.5ML SYRINGE 18YRS & OLDER IM ONE (09:00)
--- NOTE | 2021-05-12 09:14 | ECGEPIP ---
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
[2021-05-12] MEDS ORDERED: GI COCKTAIL 50ML BTL(HYOSCYAMINE/MAALOX/LIDOCAINE VISCOUS)(1:3:1) PO ONE (10:00)
[2021-05-12] MEDS: PANTOPRAZOLE 40MG VIAL (C9113 PER 1) IV SCH ×2 (10:09→21:12)
[2021-05-12 14:00] VITALS: BP 137/94
--- NOTE | 2021-05-12 15:45 | IPNPDOC ---
Date Seen The patient was seen on 05/12/21. Progress Note CC: abdominal pain HISTORY OF PRESENT ILLNESS: This is a 55-year-old male who presents to [facility] ER complaining of intractable abdominal pain. Patient states that the pain started yesterday evening whenever after he ate spaghetti with red sauce. He states that he has never had this type of pain. He reports localized pain in the mid epigastric region and described it as a stabbing sharp pain. The pain has been constant since and he has had associated nausea and vomiting. He states he has vomited most of the spaghetti with the red sauce out and is not sure if there is any hints of blood. His last bowel movement was 3 days ago but he denies blood in stool. He also reports on and off chills. Patient denies any chest pain or shortness of breath. Patient also denies any travel out of the [facility] or out of the ; also denies having been in contact with anyone sick. Mr. Reyes has also been to the ER multiple times this week. He came on May 08 still with severe right-sided posterior back pain. Patient has an extensive history of kidney stones and thought this pain was similar to those. Abdomen/pelvis CT confirmed the presence of 4 mm obstructive distal right u reteral calculus, multiple bilateral non-obstructive renal calculi, mild prostatic hyperplasia, mild diverticulosis in the distal colon. For pain control patient was given ketorolac, morphine, hydromorphone, Percocet; for nausea was given ondansetron; Flomax was given to help with urination and stone passage. He was discharged after pain improved. On May 09 patient came back to the ER with the same back pain but also with pain in the epigastric area. Was given ondansetron and Phenergan for nausea, as well as Haldol. For pain control was given morphine. Reported improvement in pain and then was discharged. He reported that he also passed a kidney stone later that day. Patient did not experience pain on the and morning and afternoon of the . After dinner on , the epigastric pain returned. Patient attributed it to constipation from the medications he was given in the ER. He described the pain as sharp and constant and coming on in a short period of time. He had no bowel movement since Friday (normally 1/day) despite trying an enema. He also experienced abdominal distention, nausea, vomiting, diaphoresis, and dry heaving. He decided to come back to the hospital after experiencing no relief. Other than pain control nausea medication, an NG tube was placed per general surgery due to the intractable abdominal pain to help decompress patient's stomach via suction. Antibiotics were also started as well. He reported relief of pain after placement of the tube becoming less distended, and tolerating clear liquid diet. The week before he came to the ER the patient denied any making any drastic changes to his diet or regimen. He believes the kidney stone pain could be due to stress he is under twenty-five is known with stage IV cancer. He denies intake of excessive usfy-ulp-wykbtny pain meds such as NSAIDs. He does endorse drinking lots of unsweetened tea however. 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 REVIEW OF SYSTEMS: Constitutional reports resolution of chills, sweats, feeling feverish HEENT: Reported discomfort from NG tube being placed, no dysphagia; endorses dry mouth Cardiac: Denies chest pain, palpitations Gastrointestinal: At this time denies nausea, vomiting, reflux; reports less abdominal discomfort and less abdominal distention Genitourinary: Denies hematuria, flank pain Neurology: Denies headache, worsening vision, dizziness, loss of consciousness PHYSICAL EXAM: VS: See below General: 55-year-old obese male, lying comfortably in bed, with NG tube in place HEENT: Head normocephalic atraumatic; eyes PERRLA and EOMI, clear conjunctiva bilaterally; throat moist mucous membranes Cardiac: Regular rate and rhythm Respiratory: Clear to auscultation bilaterally Gastrointestinal: Normoactive bowel sounds in all four quadrants, nontender to palpation at this time, no palpable abdominal masses appreciated; negative Rovsing sign bilaterally IMAGING: CT abdomen pelvis (05/12/2021) with ctx impression: Mildly increased attenuation in the mesenteric fat in the central aspect of the abdomen which may indicate mesenteric panniculitis that is similar in appearance compared to the CT abdomen pelvis on 05/08/2021. Nonobstructive bilateral nephrolithiasis no calculi in the ureters or urinary bladder. No hydronephrosis or hydroureter. Colonic diverticulosis without evidence of diverticulitis. Enlarged prostate. Small fat containing indirect left inguinal hernia and a small fat-containing umbilical hernia, which are similar in appearance compared to previous CT. ASSESSMENT AND PLAN: Patient is a 56-year-old gentleman who presented to the ED with intractable abdominal pain after eating a meal. He had been to the ER on May 08 and May 09 for pain related to a kidney stone and epigastric pain as well. He reports improvement in pain after insertion of an NG tube and suction and has been started on antibiotics #Abdominal pain/discomfort -For pain patient has received morphine, Dilaudid, acetaminophen, Toradol -For nausea patient has received ondansetron, metoclopramide -Antibiotics: Zosyn, Flagyl, metronidazole, ciprofloxacin -Cocktail given in an attempt to distinguish between cardiac and GI source of pain and to help symptoms -Patient was started on a clear liquid diet and the NG tube was clamped, and has subsequently been removed after patient was shown to tolerate that diet. #Peptic ulcer (disease) -Possible peptic ulcers has received Carafate, Protonix -Will consider EGD if symptoms do not resolve; else will pursue as an outpatient -H. pylori and fecal occult blood tests are pending -Is on maintenance fluids -Liver profile pending s/p Leukocytosis DVT prophylaxis VS, I&O, 24H, Fishbone Vital Signs/I&O Vital Signs Date Time Temp Pulse Resp B/P (MAP) Pulse Ox O2 Delivery O2 Flow Rate FiO2 05/12/21 14:00 98.6 87 18 137/94 (108) 96 Room Air 05/12/21 04:45 2.0 I&O- Last 24 Hours up to 6 AM 05/12/21 06:00 Intake Total 1080 ml Balance 1080 ml Laboratory Data 24H LABS Laboratory Tests 2 05/12/21 00:19: Immature Granulocyte % (Auto) 0.3, Neutrophils (%) (Auto) 88.2H, Lymphocytes (%) (Auto) 5.8L, Monocytes (%) (Auto) 5.3, Eosinophils (%) (Auto) 0.0, Basophils (%) (Auto) 0.4, Neutrophils # (Auto) 11.3H, Lymphocytes # (Auto) 0.7L, Monocytes # (Auto) 0.7, Eosinophils # (Auto) 0.0, Basophils # (Auto) 0.1, Nucleated Red Blood Cells % (auto) 0.0, Lactic Acid Level 3.2*H, Total Bilirubin 1.3H, Direct Bilirubin < 0.1, Aspartate Amino Transf (AST/SGOT) 43H, Alanine Aminotransferase (ALT/SGPT) 27, Alkaline Phosphatase 85, Total Protein 7.6, Albumin 4.2, Albumin/Globulin Ratio 1.2, Lipase 50L 05/12/21 00:21: POC Glucose (Misc Panel) 175H, POC Sodium (Misc Panel) 141, POC Potassium (Misc Panel) 3.6, POC Chloride (Misc Panel) 105, POC Total CO2 (Misc Panel) 22.0L, POC Blood Urea Nitrogen (Misc Panel 18, POC Ionized Calcium (Misc Panel) 4.5, POC Creatinine (Misc Panel) 0.6, POC Hematocrit (Misc Panel) 46.0 05/12/21 02:28: Coronavirus (COVID-19)(PCR) NEGATIVE, Influenza Type A (RT-PCR) NEGATIVE, Influenza Type B (RT-PCR) NEGATIVE, Respiratory Syncytial Virus (PCR) NEGATIVE 05/12/21 04:23: Total Bilirubin 1.0, Direct Bilirubin 0.2, Aspartate Amino Transf (AST/SGOT) 11, Alanine Aminotransferase (ALT/SGPT) 23, Alkaline Phosphatase 83, Total Protein 7.0, Albumin 4.1, Albumin/Globulin Ratio 1.4, Erythrocyte Sedimentation Rate 5, Lactate Dehydrogenase 185, Total Creatine Kinase 259, Creatine Kinase MB 1.6, Creatine Kinase MB Relative Index 0.62, Troponin I < 0.02, C-Reactive Protein, Quantitative 0.80H 05/12/21 07:35: Immature Granulocyte % (Auto) 0.3, Neutrophils (%) (Auto) 84.2H, Lymphocytes (%) (Auto) 8.9L, Monocytes (%) (Auto) 6.4, Eosinophils (%) (Auto) 0.0, Basophils (%) (Auto) 0.2, Neutrophils # (Auto) 8.0, Lymphocytes # (Auto) 0.8L, Monocytes # (A uto) 0.6, Eosinophils # (Auto) 0.0, Basophils # (Auto) 0.0, Nucleated Red Blood Cells % (auto) 0.0, Anion Gap 7L, Glomerular Filtration Rate > 60.0, Lactic Acid Followup at 4 Hours 1.0, Calcium Level 8.7, Magnesium Level 1.9, Total Bilirubin 0.8, Aspartate Amino Transf (AST/SGOT) 7, Alanine Aminotransferase (ALT/SGPT) 22, Alkaline Phosphatase 77, Total Protein 6.6, Albumin 3.7, Albumin/Globulin Ra alexander 1.3 CBC/BMP Laboratory Tests 05/12/21 00:19 05/12/21 07:35 Microbiology Microbiology 05/12/21 Blood Culture, Received Pending 05/12/21 Blood Culture, Received Pending GME ATTESTATION GME ATTESTATION My faculty preceptor for this patient encounter was physically present during the encounter and was fully available. All aspects of the patient interview, examination, medical decision making process, and medical care plan development were reviewed and approved by the faculty preceptor. The faculty preceptor is aware and concurs with the plan as stated in the body of this note and will attest to such by his/her cosignature. ATTENDING NOTE I, Samanta Martinez, have independently examined this patient and performed my own physical exam, as well as reviewed the documentation and edited where necessary. I have discussed in detail with the resident / student the findings and plan of treatment as documented by the resident / student and edited their note. I agree with their findings and treatment plan and have edited their documentation. I will continue to follow the patient during this hospital stay. Tony Bird DO May 12, 2021 15:45 SAMANTA MARTINEZ MD May 12, 2021 17:04
[2021-05-12 17:17] LABS: APPEARANCE, URINE CLEAR (CLEAR); BACTERIA, URINE AUTO NEGATIVE (NEGATIVE); BILIRUBIN, URINE AUTO NEGATIVE (NEGATIVE); BLOOD, URINE BLOOD NEGATIVE (NEGATIVE); COLOR, URINE YELLOW (YELLOW); GLUCOSE, URINE (UA) AUTO NEGATIVE (NEGATIVE); KETONE, URINE AUTO 1+ mg/dL (NEGATIVE); LEUKOCYTE ESTERASE, URINE AUTO NEGATIVE (NEGATIVE); MUCUS, URINE SMALL (NEGATIVE); NITRITE, URINE AUTO NEGATIVE (NEGATIVE); PROTEIN, URINE AUTO 1+ mg/dL (NEGATIVE); RBC, URINE AUTO 1 /HPF (0-3); SPECIFIC GRAVITY URINE AUTO 1.029 (1.002-1.035); SQUAMOUS EPITHELIAL CELL UR AU 0 /HPF (0-6); UROBILINOGEN, URINE AUTO 0.2 mg/dL (0.0-2.0); WBC, URINE AUTO 1 /HPF (0-3)
[2021-05-12 22:00] VITALS: BP 145/72
[2021-05-13] MEDS: CIPROFLOXACIN 400 MG in IV 1 EA IV SCH (05:04)
[2021-05-13 06:00] VITALS: BP 142/90
[2021-05-13 06:12] LABS: BASO % 0.6 % (0.0-1.0); EOS # 0.2 10^3/uL (0.0-0.5); EOS % 2.9 % (0.0-3.0); HEMATOCRIT 40.4 % (42.0-52.0); HEMOGLOBIN 13.4 g/dl (13.5-17.5); LYMPH # 2.3 10^3/uL (1.5-5.0); LYMPH % 32.4 % (24.0-44.0); MEAN CORPUSCULAR HEMOGLOBIN 28.3 pg (27.0-33.0); MEAN CORPUSCULAR HGB CONC 33.2 g/dl (32.0-36.5); MEAN CORPUSCULAR VOLUME 85.4 fl (80.0-96.0); MONO # 0.6 10^3/uL (0.0-0.8); MONO % 8.6 % (2.0-8.0); NEUTROPHILS # 3.8 10^3/uL (1.5-8.5); NEUTROPHILS % 55.1 % (36.0-66.0); PLATELET COUNT, AUTOMATED 163 10^3/uL (150-450); RED BLOOD COUNT 4.73 10^6/uL (4.30-6.10)
[2021-05-13 06:37] LABS: ALBUMIN 3.3 GM/DL (3.2-5.2); ALT/SGPT 23 U/L (12-78); BILIRUBIN,DIRECT 0.2 MG/DL (0.0-0.2); BILIRUBIN,TOTAL 1.1 MG/DL (0.2-1.0); BLOOD UREA NITROGEN 10 MG/DL (7-18); CALCIUM LEVEL 8.1 MG/DL (8.5-10.1); CARBON DIOXIDE LEVEL 25 MEQ/L (21-32); CHLORIDE LEVEL 110 MEQ/L (98-107); CREATININE FOR GFR 0.76 MG/DL (0.70-1.30); GLOMERULAR FILTRATION RATE > 60.0 (>56); GLUCOSE, FASTING 99 MG/DL (70-100); MAGNESIUM LEVEL 1.7 MG/DL (1.8-2.4); POTASSIUM SERUM 3.7 MEQ/L (3.5-5.1); SODIUM LEVEL 143 MEQ/L (136-145); TOTAL PROTEIN 5.8 GM/DL (6.4-8.2)
[2021-05-13] MEDS: metroNIDAZOLE 500 MG in IV 1 EA IV SCH (06:49)
[2021-05-13] MEDS: HEPARIN SOD (PORCINE) 5000UNITS/ML 1ML VIAL/SYRINGE SC SCH (06:50)
[2021-05-13] MEDS: NS 1,000 ML IV SCH (07:00)
[2021-05-13] MEDS ORDERED: MAG SULF 1GM/100ML (MAG RUN) 1 GM in IV 1 EA IV ONE (07:15)
[2021-05-13] MEDS: PANTOPRAZOLE 40MG VIAL (C9113 PER 1) IV SCH (08:24)
[2021-05-13] MEDS: SUCRALFATE 1 GM TAB PO SCH (08:25)
[2021-05-13] MEDS ORDERED: PROT1TAB2 PO (09:08)
[2021-05-13] MEDS ORDERED: CIPR-249 PO (09:08)
[2021-05-13] MEDS ORDERED: FLAG500T PO (09:08)
[2021-05-13] MEDS ORDERED: SUCR1TA PO (09:08)
--- NOTE | 2021-05-13 10:00 | DS.PDOC ---
Discharge Summary General Date of Admission May 11, 2021 at 23:57 Date of Discharge 05/13/2021 Discharge Summary PROCEDURES PERFORMED DURING STAY: [None]. ADMITTING DIAGNOSES / DISCHARGE DIAGNOSES: Abdominal pain - possibly 2/2 gastritis, questionable diagnosis of mesenteric panniculitis s/p Intractable nausea and vomiting s/p Leukocytosis Hx of Nephrolithiasis DVT prophylaxis COMPLICATIONS/CHIEF COMPLAINT: Nausea / Vomiting / Abdominal pain HISTORY OF PRESENT ILLNESS: Patient is a 55-year-old male with past medical history of kidney stones, presented to emergency room with complaints of abdominal pain, nausea and vomiting. Patient was admitted to the hospitalist service for further evaluation and treatment. Patient was seen and examined at the bedside. Currently, he denies any nausea, vomiting. Reports that his abdominal pain has resolved. He denies any chest pain, shortness of breath, palpitations or cough. Denies any diarrhea, or urinary discomfort. HOSPITAL COURSE: Abdominal pain - possibly 2/2 gastritis, questionable diagnosis of mesenteric panniculitis - Currently patient is reported resolution of his abdominal pain and has not experience any further nausea or vomiting - He remains hemodynamically stable and afebrile - Physical exam does not reveal any tenderness - Has been tolerating a liquid diet which will be advanced. If continues to tolerate will be discharged home - Continue with Protonix and Carafate - Continue with Cipro and Flagyl (Day #2) - Will have outpatient follow-up with general surgery in the next 7 days for consideration of EGD s/p Intractable nausea and vomiting s/p Leukocytosis Hx of Nephrolithiasis DVT prophylaxis - c/w TEDs/Sequentials DISCHARGE MEDICATIONS: Please see below. ALLERGIES: Please see below. PHYSICAL EXAMINATION ON DISCHARGE: Vitals (See below) General: Patient is sitting up in bed, appears to be comfortable without any acute distress, is awake, alert, oriented 3 HEENT: NC, AT CVS: +S1S2 Lungs: Fair air entry b/l, -w/r/r Abdomen: Soft, nondistended and nontender Extremities: - Edema, - Calf tenderness LABORATORY DATA: Please see below. IMAGING: CT abdomen / pelvis 05/12: 1. 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 2. Nonobstructive bilateral nephrolithiasis. No calculi in the ureters or urinary bladder. No hydronephrosis or hydroureter. 3. Colonic diverticulosis without evidence for diverticulitis. 4. Enlarged prostate. 5. Small fat containing indirect left inguinal hernia and a small fat containing umbilical hernia, which are similar in appearance compared to the CT abdomen and pelvis on 05/08/2021. ACTIVITY: [As tolerated]. DISCHARGE PLAN: Follow-up with primary care provider and general surgery within the next 7 days Remain compliant with treatment plan and medications Return to the ER if you experience any problems DISPOSITION: Home DISCHARGE CONDITION: [Stable]. TIME SPENT ON DISCHARGE: 35 minutes. Vital Signs/I&Os Vital Signs Date Time Temp Pulse Resp B/P (MAP) Pulse Ox O2 Delivery O2 Flow Rate FiO2 05/13/21 06:00 98.6 57 17 142/90 (107) 97 Room Air 05/12/21 04:45 2.0 I&O- Last 24 Hours up to 6 AM 05/13/21 06:00 Intake Total 2230 ml Output Total 370 ml Balance 1860 ml Laboratory Data Labs 24H Laboratory Tests 2 05/12/21 16:47: Urine Color YELLOW, Urine Appearance CLEAR, Urine pH 5.0, Urine Specific [place] 1.029, Urine Protein 1+H, Urine Glucose (Auto)(UA) NEGATIVE, Urine Ketones (Auto) 1+H, Urine Blood NEGATIVE, Urine Nitrite NEGATIVE, Urine Bilirubin NEGATIVE, Urine Urobilinogen 0.2, Urine Leukocyte Esterase (Auto) NEGATIVE, Urine WBC (Auto) 1, Urine RBC (Auto) 1, Urine Hyaline Casts (Auto) 0, Urine Bacteria (Auto) NEGATIVE, Urine Squamous Epithelial Cells 0, Urine Mucus (Auto) SMALL, Urine Sperm (Auto) 05/13/21 05:38: Immature Granulocyte % (Auto) 0.4, Neutrophils (%) (Auto) 55.1, Lymphocytes (%) (Auto) 32.4, Monocytes (%) (Auto) 8.6H, Eosinophils (%) (Auto) 2.9, Basophils (%) (Auto) 0.6, Neutrophils # (Auto) 3.8, Lymphocytes # (Auto) 2.3, Monocytes # (Auto) 0.6, Eosinophils # (Auto) 0.2, Basophils # (Auto) 0.0, Nucleated Red Blood Cells % (auto) 0.0, Anion Gap 8, Glomerular Filtration Rate > 60.0, Calcium Level 8.1L, Magnesium Level 1.7L, Total Bilirubin 1.1H, Direct Bilirubin 0.2, Aspartate Amino Transf (AST/SGOT) 10, Alanine Aminotransferase (ALT/SGPT) 23, Alkaline Phosphatase 69, Total Protein 5.8L, Albumin 3.3, Albumin/Globulin Ratio 1.3 CBC/BMP Laboratory Tests 05/13/21 05:38 Microbiology Microbiology 05/12/21 Stool Occult Blood (SARABJIT) - Final, Complete 05/12/21 Blood Culture - Preliminary, Resulted No growth after 24 hours . All specim... 05/12/21 Blood Culture - Preliminary, Resulted No growth after 24 hours . All specim... Discharge Medications Scheduled Ciprofloxacin HCl (Cipro) 500 Mg Tablet, 1 TAB PO BID Metronidazole (Flagyl) 500 Mg Tablet, 1 TAB PO TID Pantoprazole Sodium (Protonix) 40 Mg Tablet.dr, 1 TAB PO BID Sucralfate (Sucralfate) 1 Gm Tablet, 1 GM PO ACHS Allergies Coded Allergies: No Known Allergies (Verified , 07/25/04) DALI MARTINEZ MD May 13, 2021 10:00
[2021-05-14 11:46] LABS: HEPATITIS A ANTIBODY IGM NEGATIVE (NEGATIVE); HEPATITIS B CORE ANTIBODY IGM NEGATIVE (NEGATIVE); HEPATITIS B SURFACE ANTIGEN NEGATIVE (NEGATIVE)
== END 2021-05-13 11:55 | disposition home or self-care (01) | DRG 241 ==
LOC: M ED 23:56 → M ED INP 23:57 → M MSPAV 05-12 05:23
PROVIDERS: ADMIT Family Medicine; ATTEND Internal Medicine
DX: K29.70 Gastritis, unspecified, without bleeding (principal); K65.4 Sclerosing mesenteritis; Z87.442 Personal history of urinary calculi

== ENCOUNTER 2023-01-12 08:29 | Emergency (ER) | payer MEDICAID, SELFPAY ==
[~2023-01-12] VITALS: Ht 172.7 cm; Wt 90.9 kg
[~2023-01-12 08:29] MED LIST changes: +CIPR-249 PO; +FISH10005 PO; -FISH7.5C PO; +FLAG500T PO; +PROT1TAB2 PO; +SUCR1TA PO
[2023-01-12] MEDS ORDERED: ONDANSETRON 4MG 2ML VIAL IV ONE (09:10)
[2023-01-12] MEDS ORDERED: KETOROLAC 30 MG/ML 1ML VIAL IV ONE (09:10)
[2023-01-12] MEDS ORDERED: NS 1,000 ML IV ONE (09:10)
[2023-01-12 09:17] LABS: BASO # 0.1 10^3/uL (0.0-0.2); BASO % 0.8 % (0.0-1.0); EOS # 0.3 10^3/uL (0.0-0.5); EOS % 4.1 % (0.0-3.0); HEMATOCRIT 47.2 % (42.0-52.0); HEMOGLOBIN 15.8 g/dl (13.5-17.5); LYMPH # 1.7 10^3/uL (1.5-5.0); LYMPH % 22.8 % (24.0-44.0); MEAN CORPUSCULAR HEMOGLOBIN 28.5 pg (27.0-33.0); MEAN CORPUSCULAR HGB CONC 33.5 g/dl (32.0-36.5); MEAN CORPUSCULAR VOLUME 85.2 fl (80.0-96.0); MONO # 0.6 10^3/uL (0.0-0.8); MONO % 7.9 % (2.0-8.0); NEUTROPHILS # 4.7 10^3/uL (1.5-8.5); NEUTROPHILS % 64.1 % (36.0-66.0); PLATELET COUNT, AUTOMATED 226 10^3/uL (150-450); RED BLOOD COUNT 5.54 10^6/uL (4.30-6.10); WHITE BLOOD COUNT 7.3 10^3/uL (4.0-10.0)
[2023-01-12] MEDS ORDERED: MORPHINE 4 MG/ML 1ML VIAL IV ONE (10:05)
[2023-01-12] MEDS ORDERED: TAMSULOSIN 0.4 MG CAP PO ONE (10:40)
[2023-01-12] MEDS ORDERED: PROMETHAZINE 25MG/ML 1ML VIAL IV ONE (11:10)
[2023-01-12 11:28] LABS: APPEARANCE, URINE CLEAR (CLEAR); BACTERIA, URINE AUTO NEGATIVE (NEGATIVE); BILIRUBIN, URINE AUTO NEGATIVE (NEGATIVE); BLOOD, URINE BLOOD 3+ (NEGATIVE); COLOR, URINE YELLOW (YELLOW); GLUCOSE, URINE (UA) AUTO NEGATIVE (NEGATIVE); KETONE, URINE AUTO 1+ mg/dL (NEGATIVE); LEUKOCYTE ESTERASE, URINE AUTO NEGATIVE (NEGATIVE); MUCUS, URINE SMALL (NEGATIVE); NITRITE, URINE AUTO NEGATIVE (NEGATIVE); PROTEIN, URINE AUTO NEGATIVE (NEGATIVE); RBC, URINE AUTO 35 /HPF (0-3); SPECIFIC GRAVITY URINE AUTO 1.016 (1.002-1.035); SQUAMOUS EPITHELIAL CELL UR AU 0 /HPF (0-6); UROBILINOGEN, URINE AUTO 0.2 mg/dL (0.0-2.0); WBC, URINE AUTO 1 /HPF (0-3)
[2023-01-12 11:50] VITALS: BP 140/94; TEMP 96.2; O2SAT 97
[2023-01-12] MEDS ORDERED: HYDR-3713 PO (12:09)
[2023-01-12] MEDS ORDERED: FLOM0.4C39 PO (12:09)
[2023-01-12] MEDS ORDERED: AMIT25TA17 PO (20:33)
[2023-01-12] MEDS ORDERED: AMLO1TAB24 PO (20:33)
== END 2023-01-12 12:32 | disposition home or self-care (01) ==
LOC: M ED 08:29
DX: N20.1 Calculus of ureter (principal); K21.9 Gastro-esophageal reflux disease without esophagitis; Z87.442 Personal history of urinary calculi; Z88.1 Allergy status to other antibiotic agents; Z79.83 Long term (current) use of bisphosphonates; Z79.899 Other long term (current) drug therapy
CPT/HCPCS: 74176; 80047; 81001; 85025; 96361; 96374; 96375; 99284; J1885; J2405; J2550

== ENCOUNTER 2023-01-12 15:03 | Inpatient (IN) | payer MEDICAID, OTHER ==
[~2023-01-12] VITALS: Ht 172.7 cm; Wt 96.2 kg
[~2023-01-12 15:03] MED LIST changes: +HYDR-3713 PO
[2023-01-12] MEDS ORDERED: ONDANSETRON 4MG 2ML VIAL IV ONE (15:40)
[2023-01-12] MEDS ORDERED: NS 1,000 ML IV ONE ×2 (15:40→18:20)
[2023-01-12] MEDS ORDERED: SUCRALFATE SUSP 1GM/10ML UD PO ONE (16:30)
[2023-01-12] MEDS ORDERED: METOCLOPRAMIDE INJ 10MG/2ML VIAL IV ONE (16:30)
[2023-01-12 17:00] LABS: BASO # 0.1 10^3/uL (0.0-0.2); BASO % 0.3 % (0.0-1.0); EOS # 0.1 10^3/uL (0.0-0.5); EOS % 0.4 % (0.0-3.0); HEMATOCRIT 46.8 % (42.0-52.0); LYMPH # 0.9 10^3/uL (1.5-5.0); LYMPH % 5.4 % (24.0-44.0); MEAN CORPUSCULAR HEMOGLOBIN 28.5 pg (27.0-33.0); MEAN CORPUSCULAR HGB CONC 34.2 g/dl (32.0-36.5); MEAN CORPUSCULAR VOLUME 83.4 fl (80.0-96.0); MONO # 1.1 10^3/uL (0.0-0.8); MONO % 6.3 % (2.0-8.0); NEUTROPHILS % 87.1 % (36.0-66.0); PLATELET COUNT, AUTOMATED 232 10^3/uL (150-450); RED BLOOD COUNT 5.61 10^6/uL (4.30-6.10); WHITE BLOOD COUNT 17.2 10^3/uL (4.0-10.0)
[2023-01-12] MEDS ORDERED: MORPHINE 4 MG/ML 1ML VIAL IV ONE (17:15)
[2023-01-12 17:22] LABS: BLOOD UREA NITROGEN 16 MG/DL (9-23); CALCIUM LEVEL 8.6 MG/DL (8.5-10.1); CARBON DIOXIDE LEVEL 19 MMOL/L (20-31); CHLORIDE LEVEL 106 MMOL/L (98-107); CK-MB VALUE MASS 3.5 NG/ML (<3.6); CREATININE FOR GFR 0.82 MG/DL (0.70-1.30); GLOMERULAR FILTRATION RATE > 60.0 (>56); GLUCOSE, FASTING 163 MG/DL (60-100); POTASSIUM SERUM 3.7 MMOL/L (3.5-5.1); SODIUM LEVEL 139 MMOL/L (136-145)
[2023-01-12 17:24] LABS: CPK CREATINE PHOSPHOKINASE 346 U/L (46-171); MB/CK RELATIVE INDEX 1.01 (< OR =4)
[2023-01-12] MEDS ORDERED: GI COCKTAIL 50ML BTL(HYOSCYAMINE/MAALOX/LIDOCAINE VISCOUS)(1:3:1) PO ONE (18:10)
[2023-01-12] MEDS ORDERED: diphenhydrAMINE 50MG/ML VIAL IV ONE (18:10)
[2023-01-12] MEDS ORDERED: PROMETHAZINE 25MG/ML 1ML VIAL IV ONE (18:35)
[2023-01-12 19:40] LABS: CK-MB VALUE MASS 5.5 NG/ML (<3.6)
[2023-01-12 19:45] LABS: MB/CK RELATIVE INDEX 1.77 (< OR =4)
[2023-01-12] MEDS ORDERED: AMIT25TA17 PO (20:33)
[2023-01-12] MEDS ORDERED: AMLO1TAB24 PO (20:33)
[2023-01-12] MEDS ORDERED: HOME MED LIST COMPLETE! XX SCH (20:35)
[2023-01-12] MEDS ORDERED: PROMETHAZINE 25MG/ML 1ML VIAL IV PRN (21:00)
[2023-01-12] MEDS ORDERED: METOCLOPRAMIDE INJ 10MG/2ML VIAL IV PRN (21:00)
[2023-01-12] MEDS ORDERED: ACETAMINOPHEN TAB 650MG DOSE (2X325MG) PO PRN (21:00)
[2023-01-12] MEDS ORDERED: HYDROMORPHONE HCL 0.5 MG/ 0.5 ML SYRINGE IV PRN (21:00)
[2023-01-12] MEDS ORDERED: TAMSULOSIN 0.4 MG CAP PO ONE (21:20)
[2023-01-12] MEDS ORDERED: LORazepam 2 MG/ML 1ML VIAL IV STA (21:20)
[2023-01-12] MEDS ORDERED: FINASTERIDE 5MG TAB PO ONE (21:20)
[2023-01-12 21:25] LABS: RSV AMPLIFICATION NEGATIVE (NEGATIVE)
[2023-01-12] MEDS: NS 1,000 ML IV SCH (22:12)
[2023-01-12 22:49] VITALS: BP 169/100
[2023-01-12] MEDS: MORPHINE 4 MG/ML 1ML VIAL IV PRN (23:17)
[2023-01-12 23:46] VITALS: BP 124/80
[2023-01-13] VITALS (14 sets, daily range): BP systolic 126–169; BP diastolic 85–110; O2SAT 92–98
[2023-01-13] MEDS: NS 1,000 ML IV SCH ×3 (03:04→21:27)
[2023-01-13 04:51] LABS: HEMATOCRIT 43.6 % (42.0-52.0); HEMOGLOBIN 14.5 g/dl (13.5-17.5); MEAN CORPUSCULAR HEMOGLOBIN 28.2 pg (27.0-33.0); MEAN CORPUSCULAR HGB CONC 33.3 g/dl (32.0-36.5); MEAN CORPUSCULAR VOLUME 84.8 fl (80.0-96.0); PLATELET COUNT, AUTOMATED 213 10^3/uL (150-450); RED BLOOD COUNT 5.14 10^6/uL (4.30-6.10)
[2023-01-13 05:14] LABS: BLOOD UREA NITROGEN 11 MG/DL (9-23); CALCIUM LEVEL 8.3 MG/DL (8.5-10.1); CARBON DIOXIDE LEVEL 21 MMOL/L (20-31); CHLORIDE LEVEL 108 MMOL/L (98-107); CREATININE FOR GFR 0.72 MG/DL (0.70-1.30); GLOMERULAR FILTRATION RATE > 60.0 (>56); GLUCOSE, FASTING 109 MG/DL (60-100); POTASSIUM SERUM 3.8 MMOL/L (3.5-5.1); SODIUM LEVEL 142 MMOL/L (136-145)
[2023-01-13] MEDS: HEPARIN SOD (PORCINE) 5000UNITS/ML 1ML VIAL/SYRINGE SC SCH ×3 (05:57→21:26)
[2023-01-13] MEDS: TAMSULOSIN 0.4 MG CAP PO SCH (08:07)
[2023-01-13] MEDS: MORPHINE 4 MG/ML 1ML VIAL IV PRN (09:00)
[2023-01-13] MEDS ORDERED: GI COCKTAIL 50ML BTL(HYOSCYAMINE/MAALOX/LIDOCAINE VISCOUS)(1:3:1) PO ONE (09:40)
[2023-01-13] MEDS: PANTOPRAZOLE 40MG TAB (PROTONIX) PO SCH (10:46)
[2023-01-13] MEDS: SUCRALFATE 1 GM TAB PO SCH ×3 (10:46→21:26)
[2023-01-13] MEDS ORDERED: MAALOX 30 ML SUSP *UDC PO ONE (11:00)
[2023-01-13] MEDS ORDERED: MAALOX 30 ML SUSP *UDC PO PRN (12:30)
[2023-01-13] MEDS: METOPROLOL TART 25 MG TABLET PO SCH ×2 (13:07→21:26)
[2023-01-13] MEDS ORDERED: HYDROMORPHONE HCL 0.5 MG/ 0.5 ML SYRINGE IV PRN (13:10)
[2023-01-13] MEDS: GASTROGRAFIN SOLUTION 30ML PO SCH ×2 (14:52→15:21)
[2023-01-13] MEDS ORDERED: ISOVUE-370 76% 100ML VIAL As Ordered ONE (16:02)
[2023-01-14 03:47] VITALS: BP 136/94
[2023-01-14 06:25] VITALS: BP 136/94
[2023-01-14] MEDS: METOPROLOL TART 25 MG TABLET PO SCH ×2 (06:25→07:59)
[2023-01-14] MEDS: HEPARIN SOD (PORCINE) 5000UNITS/ML 1ML VIAL/SYRINGE SC SCH (06:25)
[2023-01-14 06:37] LABS: MAGNESIUM LEVEL 1.8 MG/DL (1.8-2.4)
[2023-01-14 07:43] LABS: ALBUMIN 3.3 G/DL (3.2-5.2); BILIRUBIN,DIRECT 0.3 MG/DL (<0.4); BILIRUBIN,TOTAL 1.2 MG/DL (0.3-1.2); TOTAL PROTEIN 5.8 G/DL (5.7-8.2)
[2023-01-14 07:47] VITALS: BP 150/110
[2023-01-14] MEDS: SUCRALFATE 1 GM TAB PO SCH ×2 (07:49→11:52)
[2023-01-14] MEDS: TAMSULOSIN 0.4 MG CAP PO SCH (07:59)
[2023-01-14] MEDS: PANTOPRAZOLE 40MG TAB (PROTONIX) PO SCH (07:59)
[2023-01-14] MEDS ORDERED: SUCR1TA PO (08:28)
[2023-01-14] MEDS ORDERED: FLOM0.4C39 PO (08:28)
[2023-01-14] MEDS ORDERED: METO1TAB87 PO (08:28)
[2023-01-14] MEDS ORDERED: PANT40TA29 PO (08:28)
[2023-01-14 09:02] VITALS: BP 162/110
[2023-01-14] MEDS ORDERED: amLODIPine 5 MG TAB PO ONE ×2 (09:55→11:35)
[2023-01-14 11:15] VITALS: BP 180/120
[2023-01-14 11:25] VITALS: BP 152/94
== END 2023-01-14 13:22 | disposition home or self-care (01) | DRG 465 ==
LOC: M ED 15:03 → M ED INP 20:59 → M PCU 22:47
PROVIDERS: ADMIT Family Medicine; ATTEND Internal Medicine
DX: N13.2 Hydronephrosis with renal and ureteral calculous obstruction (principal); I47.1 Supraventricular tachycardia; Z79.899 Other long term (current) drug therapy; Z88.0 Allergy status to penicillin